=== PATIENT | female | born 1995 | race Caucasian/White ===

== ENCOUNTER → 2016-10-28 | Outpatient (CLI) | payer MEDICAID | LOC: RAD 13:49 | PROVIDERS: ATTEND Physician Assistant | DX: R10.30 Lower abdominal pain, unspecified (principal) | CPT/HCPCS: 76830 ==

== ENCOUNTER 2016-11-09 06:30 | Day surgery (SDC) | payer MEDICAID ==
[2016-11-09 06:49] LABS: HEMATOCRIT 40.2 % (36.0-47.0); HEMOGLOBIN 13.7 g/dL (12.0-15.5); HGB HCT DIFFERENCE 0.9; MEAN CORPUSCULAR HEMOGLOBIN 29.2 pg (27.0-33.4); MEAN CORPUSCULAR HGB CONC 34.1 g/dL (32.0-36.0); MEAN CORPUSCULAR VOLUME 86 fl (80-97); RED BLOOD COUNT 4.68 10^6/uL (3.72-5.28); RED CELL DISTRIBUTION WIDTH 12.5 % (11.5-14.0); WHITE BLOOD COUNT 6.2 10^3/uL (4.0-10.5)
[2016-11-09] MEDS ORDERED: NALOXONE HCL INJ/PF 0.4 MG/1 ML SDV ONE (07:29)
[2016-11-09] MEDS ORDERED: PROMETHAZINE HCL INJ 25 MG/1 ML VIAL ONE (07:30)
[2016-11-09] MEDS ORDERED: GLYCOPYRROLATE INJ 0.4 MG/2 ML VIAL ONE (07:30)
[2016-11-09] MEDS ORDERED: ONDANSETRON HCL INJ/PF 4 MG/2 ML SDV ONE (07:30)
[2016-11-09] MEDS ORDERED: GLUCAGON,HUMAN RECOMB 1 MG INJ ONE (07:31)
[2016-11-09] MEDS ORDERED: FLUMAZENIL INJ 0.5 MG/5 ML VIAL IV ONE (07:31)
[2016-11-09] MEDS ORDERED: EPINEPHRINE INJ 1 MG/10 ML DISP.SYRIN ONE (07:31)
[2016-11-09] MEDS: MIDAZOLAM 2 MG/2 ML INJ ONE ×3 (08:27→08:37)
[2016-11-09] MEDS: FENTANYL CITRATE INJ/PF 100 MCG/2 ML AMPUL ONE ×2 (08:29→08:35)
--- NOTE | 2016-11-09 09:23 | Operative Report ---
Operative Report DATE OF SURGERY: 11/09/16 PREOPERATIVE DIAGNOSIS: Blood per rectum POSTOPERATIVE DIAGNOSIS: Internal hemorrhoid OPERATION: Colonoscopy with colon biopsy. Anoscopy with hemorrhoidal banding 1 SURGEON: ANDREWS PIERRE ANESTHESIA: Moderate Sedation TISSUE REMOVED OR ALTERED: Right anterior internal hemorrhoidal complex banded. Prominent ileocecal valve biopsy. COMPLICATIONS: None ESTIMATED BLOOD LOSS: minimal INTRAOPERATIVE FINDINGS: Redundant colon. Prominent ileocecal valve. Moderate sized right anterior internal hemorrhoidal complex. PROCEDURE: Informed consent was obtained. Patient was brought to the endoscopy suite and placed on the endoscopy suite table with her left side down. IV sedation with Versed and fentanyl was administered. Digital rectal exam revealed no palpable perianal masses. Endoscope was passed via the patient's anus it was fed to the cecum the patient's colon was markedly redundant making the procedure difficult and the patient experienced some pain at the beginning of the procedure requiring additional sedation. But she was comfortable after the scope was passed to the cecum. The ileocecal valve appear very prominent and a biopsy was taken of this region to ensure that the it was not a large adenoma. Remainder of the cecum and right colon transverse colon descending colon sigmoid colon and rectum were all normal with no masses no diverticuli. Anoscopy was performed it demonstrated small internal hemorrhoids too small to be banded with the exception of the right anterior internal hemorrhoidal complex which was able to be banded above the level of the dentate line with minimal patient discomfort. Patient tolerated procedure well with no apparent complications. Patient with some likely prominent ileocecal valve however will await biopsy report to make sure that it was not a large adenoma in this region. Patient status post successful banding of her right anterior internal hemorrhoidal complex. Hopefully this provides relief of her symptoms. I will see the patient back for follow-up next week.
--- NOTE | 2016-11-09 09:27 | PDOC DISCHARGE SUMMARY ---
Discharge Summary (SDC) - Discharge Final Diagnosis: Internal hemorrhoids. Date of Surgery: 11/09/16 Discharge Date: 11/09/16 Condition: Good Treatment or Instructions: Underwent colonoscopy with biopsy of prominent ileocecal valve. Anoscopy with hemorrhoidal banding 1. February discharge the patient home when met discharge criteria. Follow-up with me next week. Prescriptions: Docusate Sodium [Colace 100 mg Capsule] 100 mg PO BID #60 capsule Oxycodone HCl/Acetaminophen [Percocet 5-325 mg Tablet] 1 tab PO ASDIR PRN #25 tablet PRN Reason: Discharge Diet: As Tolerated Discharge Activity: Activity As Tolerated Report the Following to Your Physician Immediately: Fever over 101 Degrees, Unusual Bleeding - Normal to experience small amounts of bleeding in the first few days., Drainage-Foul Smelling, Large Clots Other Items to Report to MD: inability to urinate. Severe perianal pain.
[2016-11-09 10:01] VITALS: BP 111/64
== END 2016-11-09 10:15 | disposition home or self-care (01) ==
LOC: END 06:30
PROVIDERS: ATTEND Surgery
PROC: 0DBC8ZX Excision of Ileocecal Valve, Via Natural or Artificial Opening Endoscopic, Diagnostic (ICD-10-PCS; principal; 2016-11-09 08:00)
PROC: 06LY0CC Occlusion of Hemorrhoidal Plexus with Extraluminal Device, Open Approach (ICD-10-PCS; 2016-11-09 08:00)
DX: K62.5 Hemorrhage of anus and rectum (principal); K64.8 Other hemorrhoids; K63.89 Other specified diseases of intestine; Z87.891 Personal history of nicotine dependence; Q43.8 Other specified congenital malformations of intestine
CPT/HCPCS: 45380; 46221; 36415; 85027; 81025; 88305 ×2; J2250; J3010; J0171; J1610; J2310; J2405; J2550; J3490

== ENCOUNTER 2016-12-16 18:13 | Emergency (ER) | payer MEDICAID ==
--- NOTE | 2016-12-16 18:39 | ER Document Report ---
ED Medical Screen (RME) - General Stated Complaint: PELVIC PAIN Notes: onset: tuesday night pelvic pain b/l worse on the right, nnasuea, dizzyness, headache. Denies vaginal discharge, pyuria admits to urgency and frequency LMP: 12/08/2016 Sexually active, with one partner, does not use protection Has a mirena I have greeted and performed a rapid initial assessment of this patient. A comprehensive ED assessment and evaluation of the patient, analysis of test results and completion of the medical decision making process will be conducted by additional ED providers. TRAVEL OUTSIDE OF THE [place] IN LAST 30 DAYS: No - Related Data Allergies/Adverse Reactions: No Known Drug Allergies Allergy (Verified 11/09/16 06:19) Past Medical History - Past Medical History Cardiac Medical History: Denies: Hx Coronary Artery Disease, Hx Heart Attack, Hx Hypertension Pulmonary Medical History: Denies: Hx Asthma, Hx Bronchitis, Hx COPD, Hx Pneumonia Neurological Medical History: Reports: Hx Migraine. Denies: Hx Cerebrovascular Accident, Hx Seizures Renal/ Medical History: Reports: Hx Ovarian Cysts - 1 year ago but not sure if it is still there Musculoskeltal Medical History: Denies Hx Arthritis Past Surgical History: Reports: Hx Section - x2. Denies: Hx Hysterectomy - Immunizations Immunizations up to date: Yes Hx Diphtheria, Pertussis, Tetanus Vaccination: Yes Physical Exam - Vital signs Vitals: Temp Pulse Resp BP Pulse Ox 98.1 F 94 20 111/68 98 12/16/16 18:32 12/16/16 18:32 12/16/16 18:32 12/16/16 18:32 12/16/16 18:32 Course - Vital Signs Vital signs: Temp Pulse Resp BP Pulse Ox 98.1 F 94 20 111/68 98 12/16/16 18:32 12/16/16 18:32 12/16/16 18:32 12/16/16 18:32 12/16/16 18:32
[2016-12-16 19:07] LABS: APPEARANCE,URINE SLIGHTLY-CLOUDY; BILIRUBIN,URINE NEGATIVE (NEGATIVE); GLUCOSE, URINE NEGATIVE (NEGATIVE); KETONES,URINE NEGATIVE (NEGATIVE); LEUKOCYTE ESTERASE,URINE TRACE (NEGATIVE); NITRITE,URINE NEGATIVE (NEGATIVE); PROTEIN,URINE NEGATIVE (NEGATIVE); URINE SPECIFIC GRAVITY 1.031; UROBILINOGEN,URINE NEGATIVE mg/dL (<2.0)
[2016-12-16] MEDS ORDERED: ONDANSETRON 4 MG TAB.RAPDIS PO ONE (20:48)
--- NOTE | 2016-12-16 20:49 | ER Document Report ---
ED GI/ - General Chief Complaint: Pelvic Pain Stated Complaint: PELVIC PAIN Notes: Patient is a 21-year-old female that comes emergency department for chief complaint of worsening pain on both sides of her lower abdomen/pelvic area, unsure of discharge, denies bleeding, reports some painful urination. She denies flank pain, fever. She states she feels nauseated but denies vomiting. Patient is sexually active, denies using protection, has a Mirena IUD. TRAVEL OUTSIDE OF THE [place] IN LAST 30 DAYS: No - Related Data Allergies/Adverse Reactions: No Known Drug Allergies Allergy (Verified 12/16/16 18:40) Past Medical History - General Information source: Patient - Social History Smoking Status: Never Smoker Chew tobacco use (# tins/day): No Frequency of alcohol use: None Drug Abuse: None Lives with: Family Family History: Reviewed & Not Pertinent Patient has suicidal ideation: No Patient has homicidal ideation: No - Past Medical History Cardiac Medical History: Denies: Hx Coronary Artery Disease, Hx Heart Attack, Hx Hypertension Pulmonary Medical History: Denies: Hx Asthma, Hx Bronchitis, Hx COPD, Hx Pneumonia Neurological Medical History: Reports: Hx Migraine. Denies: Hx Cerebrovascular Accident, Hx Seizures Renal/ Medical History: Reports: Hx Ovarian Cysts - 1 year ago but not sure if it is still there. Denies: Hx Peritoneal Dialysis Musculoskeltal Medical History: Denies Hx Arthritis Past Surgical History: Reports: Hx Section - x2. Denies: Hx Hysterectomy - Immunizations Immunizations up to date: Yes Hx Diphtheria, Pertussis, Tetanus Vaccination: Yes Review of Systems - Review of Systems Constitutional: No symptoms reported EENT: No symptoms reported Cardiovascular: No symptoms reported Respiratory: No symptoms reported Gastrointestinal: See HPI Genitourinary: See HPI Female Genitourinary: See HPI Musculoskeletal: No symptoms reported Skin: No symptoms reported Hematologic/Lymphatic: No symptoms reported Neurological/Psychological: No symptoms reported Physical Exam - Vital signs Vitals: Temp Pulse Resp BP Pulse Ox 98.1 F 94 20 111/68 98 12/16/16 18:32 12/16/16 18:32 12/16/16 18:32 12/16/16 18:32 12/16/16 18:32 Interpretation: Normal - General General appearance: Appears well, Alert In distress: None - HEENT Head: Normocephalic, Atraumatic Eyes: Normal Extraocular movements intact: Yes Eyelashes: Normal Pupils: PERRL Mouth/Lips: Normal Mucous membranes: Normal Pharynx: Normal Neck: Normal - Respiratory Respiratory status: No respiratory distress Chest status: Nontender Breath sounds: Normal. No: Decreased air movement, Productive cough, Wheezing Chest palpation: Normal - Cardiovascular Rhythm: Regular. No: Tachycardia Heart sounds: Normal auscultation, S1 appreciated, S2 appreciated Murmur: No - Abdominal Inspection: Normal Distension: No distension Bowel sounds: Normal Tenderness: Tender - Very mild suprapubic tenderness Organomegaly: No organomegaly - Back Back: Normal, Nontender - Extremities General upper extremity: Normal inspection, Nontender, Normal color, Normal ROM , Normal temperature General lower extremity: Normal inspection, Nontender, Normal color, Normal ROM , Normal temperature, Normal weight bearing. No: Zainab's sign - Neurological Neuro grossly intact: Yes Cognition: Normal Orientation: AAOx4 Thomas Coma Scale Eye Opening: Spontaneous [place] Coma Scale Verbal: Oriented [place] Coma Scale Motor: Obeys Commands Thomas Coma Scale Total: 15 Speech: Normal Motor strength normal: LUE, RUE, LLE, RLE Sensory: Normal - Psychological Associated symptoms: Normal affect, Normal mood - Skin Skin Temperature: Warm Skin Moisture: Dry Skin Color: Normal Course - Re-evaluation Re-evalutation: Abdominal exam is unremarkable with mild suprapubic tenderness, no guarding of the abdomen. Vital signs unremarkable. CBC, chemistry, pelvic workup unremarkable. Urinalysis shows trace leukocyte esterase, patient is complaining of painful urination. After discussion with patient, based on her workup, patient will be placed on Keflex antibiotics, discussed primary care follow-up and return precautions, patient states understanding and agreement. - Vital Signs Vital signs: Temp Pulse Resp BP Pulse Ox 98.4 F 100 14 107/72 96 12/16/16 22:31 12/16/16 22:31 12/16/16 22:31 12/16/16 22:31 12/16/16 22:31 - Laboratory Result Diagrams: 12/16/16 21:15 12/16/16 21:15 Laboratory results interpreted by me: 12/16/16 18:47 Ur Leukocyte Esterase TRACE H Discharge - Discharge Clinical Impression: Lower abdominal pain, Dysuria Condition: Stable Disposition: HOME, SELF-CARE Additional Instructions: Take Keflex as directed for urinary tract infection. Workup otherwise shows no abnormalities. Return to emergency department for any concerning or worsening symptoms including fever, severe pain, abdominal distention, vomiting, etc. Prescriptions: Cephalexin Monohydrate [Keflex 500 mg Capsule] 500 mg PO BID #6 capsule Referrals: ALO SARABIA MD [Primary Care Provider] - Follow up as needed
[2016-12-16 21:26] LABS: ABSOLUTE BASOPHILS # (AUTO) 0.1 10^3/uL (0.0-0.2); ABSOLUTE EOSINOPHILS # (AUTO) 0.1 10^3/uL (0.0-0.6); ABSOLUTE LYMPHOCYTES (AUTO) 2.8 10^3/uL (0.5-4.7); ABSOLUTE MONOCYTES (AUTO) 0.9 10^3/uL (0.1-1.4); ABSOLUTE NEUT (AUTO) 5.8 10^3/uL (1.7-8.2); BASOPHILS % (AUTO) 0.6 % (0-2); EOSINOPHILS % (AUTO) 0.8 % (0-6); HEMATOCRIT 38.8 % (36.0-47.0); HEMOGLOBIN 13.6 g/dL (12.0-15.5); LYMPHOCYTES % (AUTO) 28.8 % (13-45); MEAN CORPUSCULAR HEMOGLOBIN 29.5 pg (27.0-33.4); MEAN CORPUSCULAR HGB CONC 35.1 g/dL (32.0-36.0); MEAN CORPUSCULAR VOLUME 84 fl (80-97); MONOCYTES % (AUTO) 9.6 % (3-13); RED BLOOD COUNT 4.61 10^6/uL (3.72-5.28); RED CELL DISTRIBUTION WIDTH 12.5 % (11.5-14.0); SEGMENTED NEUTROPHILS % (AUTO) 60.2 % (42-78); WHITE BLOOD COUNT 9.6 10^3/uL (4.0-10.5)
[2016-12-16 22:05] LABS: ALANINE AMINOTRANSFERASE 26 U/L (9-52); ALBUMIN 4.4 g/dL (3.5-5.0); ALKALINE PHOSPHATASE 80 U/L (38-126); ANION GAP 13 (5-19); ASPARTATE AMINO TRANSFERASE 17 U/L (14-36); BILIRUBIN,TOTAL 0.5 mg/dL (0.2-1.3); BLOOD UREA NITROGEN 11 mg/dL (7-20); CALCIUM 9.7 mg/dL (8.4-10.2); CARBON DIOXIDE 27 mmol/L (22-30); CHLORIDE 104 mmol/L (98-107); GLUCOSE 96 mg/dL (75-110); POTASSIUM 3.8 mmol/L (3.6-5.0); SODIUM 143.7 mmol/L (137-145); TOTAL PROTEIN 7.2 g/dL (6.3-8.2)
[2016-12-16] MEDS ORDERED: CEPHALEXIN 500 MG CAPSULE PO ONE (22:13)
[2016-12-16 22:34] VITALS: BP 107/72
[2016-12-16 22:43] LABS: CHLAM PCR NOT DETECTED (NOT DETECT)
== END 2016-12-16 22:34 | disposition home or self-care (01) ==
LOC: ER 18:13
DX: R10.30 Lower abdominal pain, unspecified (principal); R30.0 Dysuria; R10.2 Pelvic and perineal pain
CPT/HCPCS: 99284; 36415; 87210; 85025; 81025; 80053; 81001; 87491; 87591; S0119

== ENCOUNTER 2017-03-07 23:27 | Emergency (ER) | payer MEDICAID ==
--- NOTE | 2017-03-08 00:57 | ER Document Report ---
ED Headache - General Mode of Arrival: Ambulatory Information source: Patient TRAVEL OUTSIDE OF THE [place] IN LAST 30 DAYS: No - HPI Patient complains to provider of: Headache Patient reports: Occasional migraines Onset: This morning Onset was: Gradual Timing: Worse Associated symptoms: Double/blurred vision, Photophobia - General Chief Complaint: Headache Stated Complaint: HEADACHE Time Seen by Provider: 03/08/17 00:56 Notes: Patient is a 21-year-old female presenting to the emergency department with concerns of headache onset this morning, progressively worsening. Patient admits to blurred vision and photophobia. Patient states she has a history of migraines, but not as many recently. Patient states she normally takes over-the -counter medications or her mom's Fioricet, which she tried today without relief. Patient reports the pain being behind her eyes, forehead, and back of head. She also reports being scheduled for an eye exam to check for possible tumor behind her eyes, but had to reschedule due to work. States she has been experiencing pain behind her eyes for approximately 3-4 weeks. (FELIBERTO LAUREN) - Related Data Allergies/Adverse Reactions: No Known Drug Allergies Allergy (Verified 12/16/16 18:40) Past Medical History - General Information source: Patient - Social History Smoking Status: Unknown if Ever Smoked Family History: Reviewed & Not Pertinent Patient has suicidal ideation: No Patient has homicidal ideation: No Neurological Medical History: Reports: Hx Migraine Renal/ Medical History: Reports: Hx Ovarian Cysts Past Surgical History: Reports: Hx Section - x2 - Immunizations Immunizations up to date: Yes Hx Diphtheria, Pertussis, Tetanus Vaccination: Yes Review of Systems - Review of Systems Constitutional: No symptoms reported EENT: See HPI, Eye pain - behind eyes, Blurred vision Cardiovascular: No symptoms reported Respiratory: No symptoms reported Gastrointestinal: No symptoms reported Genitourinary: No symptoms reported Female Genitourinary: No symptoms reported Musculoskeletal: No symptoms reported Skin: No symptoms reported Hematologic/Lymphatic: No symptoms reported Neurological/Psychological: See HPI, Headaches -: Yes All other systems reviewed and negative Physical Exam - General General appearance: Appears well, Alert In distress: None - HEENT Head: Normocephalic, Atraumatic. No: Tenderness - No tenderness to posterior cervical muscles, frontal, or temporal areas. Eyes: Other - Bilateral tenderness to palpation behind eyes - Respiratory Respiratory status: No respiratory distress Chest status: Nontender Breath sounds: Normal Chest palpation: Normal - Cardiovascular Rhythm: Regular - Abdominal Inspection: Normal Tenderness: Nontender - Back Back: Normal, Nontender - Extremities General upper extremity: Normal inspection, Nontender General lower extremity: Normal inspection, Nontender - Neurological Neuro grossly intact: Yes Cognition: Normal Orientation: AAOx4 [place] Coma Scale Eye Opening: Spontaneous Thomas Coma Scale Verbal: Oriented Thomas Coma Scale Motor: Obeys Commands [place] Coma Scale Total: 15 Speech: Normal - Psychological Associated symptoms: Normal affect, Normal mood - Skin Skin Temperature: Warm Skin Moisture: Dry Skin Color: Normal Course - Re-evaluation Re-evalutation: 03/08/17 03:06 Patient states her headache is gone and she feels much better and is ready to go home. (JAMARI LUNA) - Vital Signs Vital signs: Temp Pulse Resp BP Pulse Ox 98.1 F 95 16 125/77 100 03/07/17 23:34 03/07/17 23:34 03/07/17 23:34 03/07/17 23:34 03/07/17 23:34 Discharge - Discharge Clinical Impression: Migraine headache Qualifiers: Migraine type: unspecified Status migrainosus presence: without status migrainosus Intractability: not intractable Qualified Code(s): G43.909 - Migraine, unspecified, not intractable, without status migrainosus Condition: Stable Disposition: HOME, SELF-CARE Additional Instructions: Migraine Headache: The physician feels that your symptoms are due to a migraine attack. Migraines are caused by changes in the blood vessels of the head. Arteries go into spasm, often causing warning symptoms that a headache may begin soon. As the spasm goes away, the vessels dilate and throb, causing the pounding pain of a migraine headache. Migraines often cause nausea and vomiting. The treatment of headaches varies with severity and cause of pain. Not all headaches need pain shots -- in fact, there is evidence that using narcotics for headaches may make them worse in the long run. The physician will determine the therapy that's in your best interest for this particular headache. Medications are available that may prevent migraines, or stop them as they first occur. If one medication is not helpful, try another. If migraines are frequent, be patient -- follow the doctor's recommendations. Call the physician if you are worsening, or if new symptoms arise. Referrals: ALO SARABIA MD [Primary Care Provider] - Follow up as needed Scribe Attestation: 03/08/17 03:07 I personally performed the services described in the documentation, reviewed and edited the documentation which was dictated to the scribe in my presence, and it accurately records my words and actions. (JAMARI LUNA) Scribe Documentation - Scribe Written by Jakub:: Jakub Hurtado, 03/08/2017 [id number] acting as scribe for :: Cricket
[2017-03-08] MEDS ORDERED: NORMAL SALINE 1000 ML 1,000 ML IV ONE (01:04)
[2017-03-08] MEDS ORDERED: PROCHLORPERAZINE EDISYLATE INJ 10 MG/2 ML VIAL IV ONE (01:06)
[2017-03-08] MEDS ORDERED: DIPHENHYDRAMINE HCL 50 MG/ML VIAL IV ONE (01:06)
[2017-03-08] MEDS ORDERED: KETOROLAC TROMETHAMINE INJ/PF 30 MG/1 ML SDV IV ONE (01:06)
[2017-03-08 03:11] VITALS: BP 114/59
== END 2017-03-08 03:14 | disposition home or self-care (01) ==
LOC: ER 23:27
DX: G43.909 Migraine, unspecified, not intractable, without status migrainosus (principal); H53.8 Other visual disturbances
CPT/HCPCS: 99283; 96374; 96375; J1200; J1885; J0780; J7030

== ENCOUNTER → 2017-04-22 | Outpatient (CLI) | payer MEDICAID ==
--- NOTE | 2017-04-24 12:48 | XCELERA REPORT ---
[address] [address] Upper Extremity Venous Evaluation Name: ACE LOWRY Age: 21 yrs Gender: Female : 1995 Patient Status: Outpatient Patient Location: Study Date: 04/22/2017 01:07 PM Procedure: Unilateral duplex scan of the right upper extremity veins was performed, including responses to compression and other maneuvers. Reason For Study: RUE PAIN Ordering Physician: ALO SARABIA Performed By: Samira Lion Right Side Venous Evaluation Normal vessel filling wall to wall, compression and augmentation as well as Colour flow down to the forearm veins. Interpretation Summary Normal compression, patency, spontaneous and phasic flow of the right upper extremity veins. : ALO SARABIA > Harsha Garrett
== END ==
LOC: SP 12:32
PROVIDERS: ATTEND Family Medicine
DX: M79.621 Pain in right upper arm (principal); H92.03 Otalgia, bilateral
CPT/HCPCS: 93971

== ENCOUNTER → 2017-07-26 | Outpatient (CLI) | payer MEDICAID ==
--- NOTE | 2017-07-26 15:32 | RADIOLOGY REPORT (SQ) ---
EXAM DESCRIPTION: U/S [id number] TRNABD 1GES W/ODOP COMPLETED DATE/TIME: 07/26/2017 2:33 pm REASON FOR STUDY: ENCNTR FOR SUPERVISION OF OTHER NORMAL , FIRST TRIMESTER (Z34.81) Z34.81 ENCOUNTER FOR SUPRVSN OF NORMAL , FIRST TRIM COMPARISON: None. TECHNIQUE: Transabdominal static and realtime grayscale images acquired of the pelvis. Additional se lected spectral and color Doppler images recorded. All images stored on PACs. [facility]. LIMITATIONS: None. FINDINGS: FETUS: Living intrauterine . EGA: 6 weeks 5 days JEAN PAUL: 03/16/2018 FHR: 145 beats per minute. SUBCHORIONIC BLEED: No SIZE OF BLEED: Not applicable. UTERUS: 8.7 x 8.1 x 6.5 cm. No masses. CERVICAL LENGTH: Not measured. Closed. RIGHT ADNEXA: Normal ovary. 3.7 x 2.2 x 3.9 cm. No adnexal free fluid. No adnexal masses. LEFT ADNEXA: Normal ovary, 3.5 x 1.9 x 2.7 cm. No adnexal free fluid. No adnexal masses. FREE FLUID: None. OTHER: No other significant finding. IMPRESSION: LIVING INTRAUTERINE . EGA 6 weeks 5 days. Trimester of : First - 0 to 13 weeks. TECHNICAL DOCUMENTATION: JOB ID: [id number] [employer]- All Rights Reserved
== END ==
LOC: RAD 12:45
PROVIDERS: ATTEND Nurse Practitioner Women's Health
DX: Z34.81 Encounter for supervision of other normal pregnancy, first trimester (principal)
CPT/HCPCS: 76801

== ENCOUNTER → 2017-10-25 | Outpatient (CLI) | payer MEDICAID ==
--- NOTE | 2017-10-25 16:24 | RADIOLOGY REPORT (SQ) ---
EXAM DESCRIPTION: U/S OB 14+ TRNABD 1GES W/O DOP COMPLETED DATE/TIME: 10/25/2017 2:21 pm REASON FOR STUDY: ENCTR FOR SUPERVISION OF OTHER NORMAL 2ND TRIMESTER (Z34.82) Z34.82 ENC OUNTER FOR SUPRVSN OF NORMAL , SECOND TRI COMPARISON: 07/26/2017 TECHNIQUE: Static and Dynamic grayscale imaging performed of gravid uterus using transabdominal appr oach. Additional selected color Doppler and spectral images recorded. All stored on PACS. LIMITATIONS: None. FINDINGS: EGA: 20 weeks 1 day JEAN PAUL: 03/13/2018 EFW: 384 grams PERCENTILE: Not calculated COLLEEN: Largest pocket 3.4 cm PLACENTA: Anterior GRADE: I PRESENTATION: Breech ANATOMY: HEART RATE: 145 beats per minute. FOUR CHAMBER HEART: Visualized. THREE VESSEL CORD: No, a 2 vessel cord is identified CORD INSERTION: Visualized. KIDNEYS AND BLADDER: Visualized. Appear normal. STOMACH: Visualized. Appears normal. SPINE: Normal as visualized. BRAIN AND LATERAL VENTRICLES: Visualized. Appear normal. OTHER: No other significant finding. MATERNAL ADNEXA: Maternal ovaries not visualized. CERVICAL LENGTH: 3.4 cm Closed. OTHER: No other significant finding. IMPRESSION: LIVING INTRAUTERINE . ESTIMATED GESTATIONAL AGE 20 weeks 1 day 2 vessel umbilical cord Trimester of : Second trimester - 13 weeks 1 day to 27 weeks 6 days. TECHNICAL DOCUMENTATION: JOB ID: [id number] [employer]- All Rights Reserved
== END ==
LOC: RAD 12:52
PROVIDERS: ATTEND Nurse Practitioner Women's Health
DX: Z34.82 Encounter for supervision of other normal pregnancy, second trimester (principal)
CPT/HCPCS: 76805

== ENCOUNTER 2017-11-01 09:46 | Outpatient (CLI) | payer MEDICAID ==
[2017-11-01 11:02] LABS: APPEARANCE,URINE CLOUDY; BILIRUBIN,URINE NEGATIVE (NEGATIVE); COLOR,URINE AMBER; GLUCOSE, URINE NEGATIVE (NEGATIVE); KETONES,URINE NEGATIVE (NEGATIVE); LEUKOCYTE ESTERASE,URINE SMALL (NEGATIVE); NITRITE,URINE NEGATIVE (NEGATIVE); PROTEIN,URINE 100 mg/dL (NEGATIVE); URINE SPECIFIC GRAVITY 1.032
[2017-11-01] MEDS ORDERED: PROMETHAZINE HCL INJ 25 MG/1 ML VIAL ONE (11:11)
[2017-11-01] MEDS ORDERED: RINGERS SOLUTION,LACTATED 1,000 ML IV ONE ×2 (11:14→13:15)
[2017-11-01] MEDS ORDERED: RINGERS SOLUTION,LACTATED 1,000 ML IV PRN (11:14)
[2017-11-01 11:17] LABS: URINE AMPHETAMINES SCREEN NEGATIVE; URINE BARBITURATES SCREEN NEGATIVE; URINE BENZODIAZEPINES SCREEN NEGATIVE; URINE COCAINE SCREEN NEGATIVE; URINE MARIJUANA (THC) SCREEN NEGATIVE; URINE METHADONE SCREEN NEGATIVE; URINE PHENCYCLIDINE SCREEN NEGATIVE
[2017-11-01] MEDS ORDERED: PROMETHAZINE HCL INJ 25 MG/1 ML VIAL IV ONE (14:00)
== END 2017-11-01 13:05 | disposition home or self-care (01) ==
LOC: EDSTATUS 10:01 → LC 10:03
PROVIDERS: ATTEND Obstetrics & Gynecology Gynecology
PROC: 4A1HXCZ Monitoring of Products of Conception, Cardiac Rate, External Approach (ICD-10-PCS; principal; 2017-11-01)
DX: O21.2 Late vomiting of pregnancy (principal); Z3A.21 21 weeks gestation of pregnancy
CPT/HCPCS: 81001; 80307; 59899; J2550

== ENCOUNTER 2018-01-31 16:12 | Emergency (ER) | payer MEDICAID ==
--- NOTE | 2018-01-31 16:44 | ER Document Report ---
ED General - General Chief Complaint: Chest Pain Stated Complaint: COUGH, RAPID PULSE Time Seen by Provider: 01/31/18 16:34 Notes: Patient was referred here to be evaluated for a possible blood clot in her lungs. She has been feeling sick since yesterday with a sore throat and congestion and a dry cough and some pain into her right shoulder. She went to her primary care doctor's office today and her heart rates were noticed to be increased and they sent her here for further evaluation. Patient says that she recalls her heart rate being 126 to 130 in the doctor's office. She has never had blood clots before. She is 34 weeks . Has not had any vomiting or diarrhea or fevers. TRAVEL OUTSIDE OF THE [place] IN LAST 30 DAYS: No - Related Data Allergies/Adverse Reactions: No Known Drug Allergies Allergy (Verified 11/01/17 10:37) Past Medical History - Social History Smoking Status: Unknown if Ever Smoked Cigarette use (# per day): No Family History: Reviewed & Not Pertinent - Past Medical History Cardiac Medical History: Reports: Other - No history of blood clots. Neurological Medical History: Reports: Hx Migraine Renal/ Medical History: Reports: Hx Ovarian Cysts Musculoskeltal Medical History: Denies Hx Arthritis Past Surgical History: Reports: Hx Section - x2 - Immunizations Immunizations up to date: Yes Hx Diphtheria, Pertussis, Tetanus Vaccination: Yes Review of Systems - Review of Systems Notes: REVIEW OF SYSTEMS: CONSTITUTIONAL : Denies fever. EENT: See HPI. Denies eye, ear pain or other symptoms. CARDIOVASCULAR: Denies chest pain. RESPIRATORY: See HPI. GASTROINTESTINAL: Denies abdominal pain or nausea, vomiting, or diarrhea. GENITOURINARY: Denies difficulty or painful urinating, urinary frequency, blood in urine. MUSCULOSKELETAL: Denies back or neck pain. Denies joint pain or swelling. Pain in the right shoulder. SKIN: Denies rash or skin lesions. NEUROLOGICAL: Denies LOC or altered mental status. Denies headache. Denies sensory loss or motor deficits. ALL OTHER SYSTEMS REVIEWED AND NEGATIVE. Physical Exam - Vital signs Vitals: Temp Pulse Resp BP Pulse Ox 97.7 F 107 H 18 109/74 99 01/31/18 16:20 01/31/18 16:20 01/31/18 16:20 01/31/18 16:20 01/31/18 16:20 Interpretation: Tachycardic - Mild at 107 in triage. - Notes Notes: PHYSICAL EXAMINATION: GENERAL: Well-appearing, in no acute distress. HEAD: Atraumatic, normocephalic. EYES: Pupils equal round and reactive to light, extraocular movements intact. ENT: oropharynx clear, with only some erythema, but without exudates. Moist mucous membranes. NECK: Normal range of motion, supple. LUNGS: Breath sounds clear and equal bilaterally. HEART: Regular rate and rhythm without murmurs. ABDOMEN: Soft, nontender. No guarding or rebound. No masses. BACK: No tenderness throughout entire back. Shoulder with full range of motion without pain. EXTREMITIES: Normal range of motion without pain. NEUROLOGICAL: Normal speech, normal gait. Normal sensory, motor, and reflex exams. Awake, alert, and oriented x3. Cranial nerves normal. PSYCH: Normal mood, normal affect. SKIN: Warm, dry, no rashes. Course - Vital Signs Vital signs: Temp Pulse Resp BP Pulse Ox 97.7 F 107 H 18 109/74 97 01/31/18 16:20 01/31/18 16:20 01/31/18 16:34 01/31/18 16:20 01/31/18 16:55 - Laboratory Result Diagrams: 01/31/18 16:30 01/31/18 16:30 Laboratory results interpreted by oh: 01/31/18 01/31/18 01/31/18 16:30 16:30 17:28 Hct 33.7 L BUN 4 L Creatinine 0.42 L TSH 0.28 L - Diagnostic Test Radiology reviewed: Image reviewed, Reports reviewed - CTA of the chest is negative for pulmonary emboli. - EKG Interpretation by Ut EKG shows normal: Sinus rhythm Rate: Tachycardia - At 107 Rhythm: NSR Additional EKG results interpreted by oh: 01/31/18 18:20 EKG is otherwise normal. Discharge - Discharge Clinical Impression: URI (upper respiratory infection), Sore throat, , Viral illness Condition: Stable Disposition: HOME, SELF-CARE Additional Instructions: Sinus Tachycardia The palpitations (racing heart) you have felt are due to "sinus tachycardia." This is a rapid (but NORMAL) rhythm which can be due to fever, pain, anxiety, lack of sleep, over-exertion, or drugs. Cold medications, caffeine, and diet pills are particularly likely to cause tachycardia. The doctor has found no evidence of heart disease. Occasionally, medication is required for uncomfortable palpitations. Usually, however, all that is required is rest, reassurance, and avoiding caffeine, alcohol, nicotine , and unnecessary medicines. Call the doctor if you develop any new or unusual symptoms, or if the rapid heartbeat does not resolve. CHEST PAIN OF UNCLEAR CAUSE: The exact cause of your chest pain isn't clear. Fortunately, there is no evidence of a dangerous medical condition. Further testing may be required to find the source of the pain. Most often, we find that this pain is coming from the chest wall -- the muscles or rib joints in the chest. But chest pain can come from the lung and lung lining, the esophagus, the heart valves or heart lining, and even the stomach or gallbladder. Rest. Eat lightly until the pain is gone. We may prescribe medicine for pain and inflammation. You should call the physician immediately if the pain radiates to the shoulder, jaw or arms; if you start to run a fever or develop a cough; or if you develop shortness of breath, or other new or alarming symptoms. NORMAL EXAM AND WORKUP: At this time, your examination and workup show no significant abnormality. No significant abnormal physical findings were noted. All laboratory, EKG, and imaging (x-ray, CT scans, ultrasound) studies that were ordered show no significant abnormality. Although your examination and all studies that were ordered showed no significant abnormal finding, there are no examinations and no studies that are 100% accurate. There is always the possibility that some abnormality could exist and not be detected with physical examination or within the limits and capabilities of laboratory and other studies. You should return or follow up as you were instructed on your visit today for further evaluation if your symptoms do not resolve. CHEST WALL PAIN: Your chest pain may be coming from the chest wall. This is often caused by straining the muscles or joints in the chest during physical activity, direct trauma, coughing, or vigorous vomiting. Persons with arthritis are especially prone to this type of pain, due to inflammation of the cartilage joints near the breast bone. Occasionally, no cause can be found. Rest from strenuous physical activity. This kind of chest pain is usually made worse by movement of the chest. Depending on the symptoms, we may prescribe medicine for pain, muscle relaxation, and antiinflammatory effects. If the pain is new, and seems to be due to muscle strain, cold packs can help. Otherwise, apply gentle warmth to the painful area for 15 minutes every hour or two. You should call contact the doctor immediately if things change. Further evaluation is needed if you develop a fever or cough, if the nature of the pain changes, or if you become short of breath. SORE THROAT: Sore throats may be caused by viruses, bacteria, or fungi. Most are due to a virus, and must get better on their own. Bacterial sore throats, particularly those due to "strep," need treatment with antibiotics. If an antibiotic is prescribed, be sure to take the medication for a full 10 days. Failure to take the antibiotic can result in complications such as rheumatic fever. Sometimes, an injection of antibiotics is given instead of pills or liquid. This single "shot" is equal in effectiveness to the oral medication. To relieve symptoms, take acetaminophen for pain. Sip clear liquids frequently, or eat popsicles or ice chips. Anesthetic sprays or lozenges may help. Make sure the air in the room is not too dry. Avoid using decongestants or antihistamines. Call the doctor if there is no improvement in two days, or if you have difficulty breathing, increasing throat pain, high fever, rash, or frequent vomiting. UPPER RESPIRATORY ILLNESS: You have a viral infection of the respiratory passages -- a "cold." This common infection causes nasal congestion, drainage, and often sore throat and cough. It is highly contagious. The disease usually lasts about 10 to 14 days. There is no "cure" for the viral infection -- it must run its course. If there is a complication, such as bacterial infection in the nose, sinuses, middle ear, or bronchial tubes, antibiotics may be required. The antibiotics won't affect the virus. Drink plenty of fluids. A humidifier may help. An expectorant medication or decongestant may make you more comfortable. Use acetaminophen or ibuprofen for fever or aches. See the doctor if fever persists over two days, if there is any significant worsening of your symptoms, or if you simply fail to improve as expected. Viral Syndrome The physician has diagnosed a viral infection. Viruses not only cause "colds," but can cause many different symptoms including generalized aching, fever, headache, cough, diarrhea, nausea, vomiting, and fatigue. The treatment, for the most part, is simply relief of symptoms. This means that antibiotics are usually not given. Rest, fluids, pain medications and, occasionally, medication for the specific symptoms that are most bothersome will be prescribed. Use good handwashing to avoid passing the virus to others. Shared toys should be cleaned with disinfectant. Clean the toilets, sinks, and counter surfaces in bathrooms. Launder clothing in hot water. Contact the physician if you develop any new or unusual symptoms such as severe headache, stiff neck, high fever, chest pain, productive cough, or shortness of breath. You should be rechecked if you don't see marked improvement within seven to 10 days. USE OF ACETAMINOPHEN (Tylenol): Acetaminophen may be taken for pain relief or fever control. It's much safer than aspirin, offering a wider range of "safe" dosages. It is safe during . Some brand names are Tylenol, Panadol, Datril, Anacin 3, Tempra, and Liquiprin. Acetaminophen can be repeated every four hours. The following are maximum recommended dosages: >89 pounds or adults 650 mg to 900 mg Acetaminophen can be repeated every four hours. Maximum dose not to exceed 4000 mg a day. FOLLOW-UP CARE: If you have been referred to a physician for follow-up care, call the physician s office for an appointment as you were instructed or within the next two days. If you experience worsening or a significant change in your symptoms, notify the physician immediately or return to the Emergency Department at any time for re-evaluation. Referrals: ALO SARABIA MD [Primary Care Provider] - Follow up as needed
[2018-01-31 16:49] LABS: ABSOLUTE BASOPHILS # (AUTO) 0.1 10^3/uL (0.0-0.2); ABSOLUTE EOSINOPHILS # (AUTO) 0.2 10^3/uL (0.0-0.6); ABSOLUTE LYMPHOCYTES (AUTO) 1.5 10^3/uL (0.5-4.7); ABSOLUTE MONOCYTES (AUTO) 0.8 10^3/uL (0.1-1.4); ABSOLUTE NEUT (AUTO) 5.8 10^3/uL (1.7-8.2); BASOPHILS % (AUTO) 0.7 % (0-2); EOSINOPHILS % (AUTO) 2.8 % (0-6); HEMATOCRIT 33.7 % (36.0-47.0); LYMPHOCYTES % (AUTO) 17.8 % (13-45); MEAN CORPUSCULAR HEMOGLOBIN 31.4 pg (27.0-33.4); MEAN CORPUSCULAR HGB CONC 35.5 g/dL (32.0-36.0); MEAN CORPUSCULAR VOLUME 89 fl (80-97); PLATELET COUNT 196 10^3/uL (150-450); RED BLOOD COUNT 3.81 10^6/uL (3.72-5.28); RED CELL DISTRIBUTION WIDTH 12.9 % (11.5-14.0); SEGMENTED NEUTROPHILS % (AUTO) 68.7 % (42-78); TOTAL CELLS COUNTED % (AUTO) 100 %; WHITE BLOOD COUNT 8.4 10^3/uL (4.0-10.5)
--- NOTE | 2018-01-31 17:09 | RADIOLOGY REPORT (SQ) ---
EXAM DESCRIPTION: CHEST SINGLE VIEW COMPLETED DATE/TIME: 01/31/2018 4:51 pm REASON FOR STUDY: Cough and congestion and tachycardia, COMPARISON: 03/24/2016. EXAM PARAMETERS: NUMBER OF VIEWS: One view. TECHNIQUE: Single frontal radiographic view of the chest acquired. RADIATION DOSE: NA LIMITATIONS: None. FINDINGS: LUNGS AND PLEURA: No opacities, masses or pneumothorax. No pleural effusion. MEDIASTINUM AND HILAR STRUCTURES: No masses. Contour normal. HEART AND VASCULAR STRUCTURES: Heart normal in size. Normal vasculature. BONES: No acute findings. HARDWARE: None in the chest. OTHER: No other significant finding. IMPRESSION: NO ACUTE RADIOGRAPHIC FINDING IN THE CHEST. TECHNICAL DOCUMENTATION: JOB ID: [id number] [employer]- All Rights Reserved Reading location - IP/workstation name: [email or web address]
[2018-01-31 17:14] LABS: ALANINE AMINOTRANSFERASE 15 U/L (9-52); ALBUMIN 3.8 g/dL (3.5-5.0); ALKALINE PHOSPHATASE 122 U/L (38-126); ANION GAP 11 (5-19); ASPARTATE AMINO TRANSFERASE 18 U/L (14-36); BILIRUBIN,DIRECT 0.3 mg/dL (0.0-0.4); BILIRUBIN,TOTAL 0.4 mg/dL (0.2-1.3); BLOOD UREA NITROGEN 4 mg/dL (7-20); CALCIUM 9.2 mg/dL (8.4-10.2); CARBON DIOXIDE 23 mmol/L (22-30); CHLORIDE 107 mmol/L (98-107); GLUCOSE 81 mg/dL (75-110); POTASSIUM 3.6 mmol/L (3.6-5.0); SODIUM 140.9 mmol/L (137-145)
[2018-01-31 18:19] LABS: FREE T4 (FREE THYROXINE) 1.27 ng/dL (0.78-2.19)
[2018-01-31 18:33] LABS: THYROID STIMULATING HORMONE 0.28 uIU/mL (0.47-4.68)
--- NOTE | 2018-01-31 18:40 | RADIOLOGY REPORT (SQ) ---
EXAM DESCRIPTION: CTA CHEST COMPLETED DATE/TIME: 01/31/2018 6:19 pm REASON FOR STUDY: , cough, short of breath, tachycardia COMPARISON: None. TECHNIQUE: CT scan of the chest performed using helical scanning technique with dynamic intravenous contrast injection. Images reviewed with lung, soft tissue and bone windows. Reconstructed coronal and sagittal MPR images reviewed. Additional 3 dimensional post-processing performed to develop Maximal Intensity Projection images (GA P). All images stored on PACS. All CT scanners at this facility use dose modulation, iterative reconstruction, and/or weight based d osing when appropriate to reduce radiation dose to as low as reasonably achievable (ALARA). [facility]: Dose Right [facility]: CareDose [facility]: Dose Right [facility]: Teradose 4D [facility]: Acrinta CONTRAST TYPE AND DOSE: contrast/concentration: Isovue 370.00 mg/ml; Total Contrast Delivered: 143.0 ml; Total Saline Delivered: 185.0 ml Contrast bolus optimized for the pulmonary arteries. Not diagnostic for the aorta. RENAL FUNCTION: BUN 4 creatinine 0.42 RADIATION DOSE: CT Rad equipment meets quality standard of care and radiation dose reduction techniq ues were employed. CTDIvol: 6.6 - 20.0 mGy. DLP: 1154 mGy-cm. . LIMITATIONS: None. FINDINGS: LUNGS AND PLEURA: No masses, infiltrates, pneumothorax. No pleural effusions, calcificati ons. AORTA AND GREAT VESSELS: No aneurysm. No dissection. HEART: No pericardial effusion. No significant coronary artery calcifications. PULMONARY ARTERIES: No emboli visualized in the main pulmonary arteries or the segmental branches. HILAR AND MEDIASTINAL STRUCTURES: No identified masses or abnormal nodes. HARDWARE: None in the chest. UPPER ABDOMEN: No significant findings. Limited exam. THYROID AND OTHER SOFT TISSUES: No masses. No adenopathy. BONES: No acute or significant finding. 3D MIPS: Confirm above findings. OTHER: No other significant finding. IMPRESSION: NORMAL CTA OF THE CHEST. NO PULMONARY EMBOLI. COMMENT: Quality ID # [id number]: Final reports with documentation of one or more dose reduction techniques (e.g., Automated exposure control, adjustment of the mA and/or kV according to patient size, use of iterative reconstruction technique) TECHNICAL DOCUMENTATION: JOB ID: [id number] [employer]- All Rights Reserved Reading location - IP/workstation name: [email or web address]
--- NOTE | 2018-01-31 18:55 | EKG REPORT ---
SEVERITY:- OTHERWISE NORMAL ECG - SINUS TACHYCARDIA : Confirmed by: Jeffrey Cordova MD 31-Jan-2018 18:54:35
[2018-01-31 19:01] VITALS: BP 114/83
== END 2018-01-31 19:01 | disposition home or self-care (01) ==
LOC: ER 16:12
DX: O26.93 Pregnancy related conditions, unspecified, third trimester (principal); J06.9 Acute upper respiratory infection, unspecified; R07.9 Chest pain, unspecified; R00.0 Tachycardia, unspecified; M25.511 Pain in right shoulder; Z3A.34 34 weeks gestation of pregnancy
CPT/HCPCS: 36415; 71045; 71275; 80053; 84439; 84443; 85025; 87070; 87880; 93005; 93010; 99285

== ENCOUNTER 2018-03-03 22:05 | Outpatient (CLI) | payer MEDICAID ==
[2018-03-03 22:49] LABS: APPEARANCE,URINE SLIGHTLY-CLOUDY; BILIRUBIN,URINE SMALL (NEGATIVE); GLUCOSE, URINE NEGATIVE (NEGATIVE); KETONES,URINE NEGATIVE (NEGATIVE); LEUKOCYTE ESTERASE,URINE NEGATIVE (NEGATIVE); NITRITE,URINE NEGATIVE (NEGATIVE); PROTEIN,URINE 30 mg/dL (NEGATIVE); URINE SPECIFIC GRAVITY 1.031
[2018-03-03 22:52] LABS: COLOR,URINE DARK YELLOW
[2018-03-03 22:56] LABS: AMNISURE (ROM) NEGATIVE (NEGATIVE)
[2018-03-03 23:14] LABS: URINE AMPHETAMINES SCREEN NEGATIVE; URINE BARBITURATES SCREEN NEGATIVE; URINE BENZODIAZEPINES SCREEN NEGATIVE; URINE COCAINE SCREEN NEGATIVE; URINE MARIJUANA (THC) SCREEN NEGATIVE; URINE METHADONE SCREEN NEGATIVE; URINE PHENCYCLIDINE SCREEN NEGATIVE
[2018-03-03] MEDS ORDERED: HYDROXYZINE PAMOATE 50 MG CAPSULE PO ONE (23:55)
[2018-03-04] MEDS ORDERED: HYDROXYZINE PAMOATE 50 MG CAPSULE ONE
--- NOTE | 2018-03-04 00:14 | Non Stress Test Report ---
Non Stress Test Datetime Report Generated by CPN: 03/04/2018 00:14 DEMOGRAPHIC Test Number: 1 EGA NST: 38.4 INDICATION Indication for Study: Ordered by Provider VITAL SIGNS Temperature - NST: 98.0 RESP - NST: 14 URINE RESULTS Urine Protein, NST: Positive Urine Ketones - NST: Negative Urine Glucose - NST: Negative Urine Blood - NST: Negative MONITORING Monitor Explained: Monitor Explained; Test Explained; Patient Verbalized Understanding Time on Monitor: 03/03/2018 22:41 Time off Monitor: 03/04/2018 00:06 NST Duration: 85 NST INTERVENTIONS NST Interventions: PO Hydration Physician Notified NST: Dr. Luan BABY A: [id number] BABY A Movement : Present Contraction Frequency : irregular FHR Baseline : 135 Accelerations : 15X15 Decelerations : None Variability : Moderate 6-25bpm NST Review: Meets Criteria for Reactive NST NST Review and Verified By : Albertina Morgan, RN NST Results: Reactive NST REPORT Report Trigger: Send Report
[2018-03-04 00:24] LABS: CHLAM PCR NOT DETECTED (NOT DETECT); GON PCR NOT DETECTED (NOT DETECT)
== END 2018-03-04 00:06 | disposition home or self-care (01) ==
LOC: RAD 22:05 → LC 22:05
PROVIDERS: ATTEND Obstetrics & Gynecology
PROC: 4A1HXCZ Monitoring of Products of Conception, Cardiac Rate, External Approach (ICD-10-PCS; principal; 2018-03-03)
DX: O47.1 False labor at or after 37 completed weeks of gestation (principal); Z3A.38 38 weeks gestation of pregnancy
CPT/HCPCS: 59025; 84112; 81005; 80307; 87491; 87591; J3490

== ENCOUNTER 2018-03-04 03:42 | Inpatient (IN) | payer MEDICAID ==
[2018-03-04] MEDS ORDERED: CEFAZOLIN SODIUM 2 GM in DEXTROSE 5%-WATER 50 ML IV PRN (04:50)
[2018-03-04] MEDS ORDERED: CITRIC ACID/SODIUM CITRATE ORAL SOLN 15 ML UDCUP ONE (04:51)
[2018-03-04] MEDS ORDERED: CEFAZOLIN INJ 1 GM VIAL ONE (04:52)
--- NOTE | 2018-03-04 05:16 | Admission Physical ---
Datetime Report Generated by CPN: 03/04/2018 05:16 CURRENT ADMISSION Chief Complaint: Uterine Contractions Indication for Induction: Not Applicable Admit Impression : Term, Intrauterine ; Repeat Section; Tubal Ligation Admit Impression- Other: previous c/section x 2. desires permanent sterilization. currently in labor with significant cervical change Admit Plan: Admit to Unit; Initiate Section Protocol ALLERGIES Medication Allergies: No Medication Allergies: No Known Drug Allergies (03/04/2018) Latex: No Latex Allergies OBSTETRICAL HISTORY EDC: 03/13/2018 00:00 : 3 Para: 2 Term: 2 : 0 SAB: 0 IAB: 0 Livin Gestational Diabetes: No Rh Sensitization: No Incompetent Cervix: No VELIA: No Infertility: No ART Treatment: No Uterine Anomaly: No IUGR: Unknown Hx Previous C/S: Yes Macrosomia: No Hx Loss/Stillborn: No PIH: No Hx : No Placenta Previa/Abruption: No Depression/PP Depression: No PTL/PROM: No Post Hemorrhage: No Current Procedures: Ultrasound; NST Obstetrical History Comments: g1- 2014, male, 40 weeks, 7lb 14oz, csection, breech presentation g2-2015, female, 0 weeks, 7lb 5oz, csection g3-current, watching the babies weight and height per patient and the umbilical cord, records indicate that 2 vessel cord present on anatomy scan but imaging at [facility] reflects 3 vessel cord, also per records poor growth, possible brachycephaly, and short long bones (Annotations: Data stored by N on behalf of user) SEE RECORDS Alcohol: No Marijuana : No Cocaine: No Other Illicit Drugs: No Cigarettes: Never Smoker. 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 Surgery: No Heart Disease: No Hosp/Surgery: Yes Autoimmune Disorder: No Anesthetic Complications: No Kidney Disease: Yes Abnormal Pap Smear: No Neuro/Epilepsy: No Psychiatric Disorders: Yes Other Medical Diseases: Yes Hepatitis/Liver Disease: No Significant Family History: No Varicosities/Phlebitis: No Trauma/Violence : No Thyroid Dysfunction: No Medical History Comments: c/s x 2, gallbladder removal, ovarian cysts, ADD, BV, Chlamydia, GERD, UTIs, yeast infection, obesity INFECTIOUS HISTORY Gonorrhea: No Genital Herpes: No Chlamydia: Yes Tuberculosis: No Syphilis: No Hepatitis: No HIV/AIDS Exposure: No Rash or Viral Illness: No HPV: No PHYSICAL EXAM General: Normal HEENT: Normal Neurologic: Normal Thyroid: Normal Heart: Normal Lungs: Normal Breast: Normal Back: Normal Abdomen: Normal Genitourinary Exam: Normal Extremities: Normal DTRs: Normal Pelvic Type: Adequate Vital Signs: Reviewed VAGINAL EXAM Dilatation: 4 Effacement: 90 Station: -3 FETUS A EGA: 38.5 Monitoring: External US FHR- Baseline: 130 Variability: Moderate 6-25bpm Accelerations: 15X15 Decelerations: None FHR Category: Category I Estimated Weight (gm): 3500 Presentation: Vertex PLANS FOR LABOR AND DELIVERY Labor and Delivery: None Pain Management: Spinal Feeding Preference: Both Benefit of Breast Feed Discussed: Yes Circumcision: Yes INFORMED CONSENT Signature: with User ID: [email or web address]
[2018-03-04 05:18] LABS: ABSOLUTE MONOCYTES (AUTO) 0.7 10^3/uL (0.1-1.4); ABSOLUTE NEUT (AUTO) 5.8 10^3/uL (1.7-8.2); BASOPHILS % (AUTO) 0.3 % (0-2); EOSINOPHILS % (AUTO) 0.1 % (0-6); HEMOGLOBIN 11.3 g/dL (12.0-15.5); LYMPHOCYTES % (AUTO) 13.5 % (13-45); MEAN CORPUSCULAR HEMOGLOBIN 31.4 pg (27.0-33.4); MEAN CORPUSCULAR HGB CONC 35.2 g/dL (32.0-36.0); MEAN CORPUSCULAR VOLUME 89 fl (80-97); MONOCYTES % (AUTO) 9.1 % (3-13); PLATELET COUNT 157 10^3/uL (150-450); RED BLOOD COUNT 3.59 10^6/uL (3.72-5.28); RED CELL DISTRIBUTION WIDTH 12.9 % (11.5-14.0); TOTAL CELLS COUNTED % (AUTO) 100 %; WHITE BLOOD COUNT 7.6 10^3/uL (4.0-10.5)
[2018-03-04] MEDS ORDERED: PROPOFOL INJ 200 MG/20 ML VIAL IV ONE (05:20)
[2018-03-04] MEDS ORDERED: EPHEDRINE SULFATE INJ 50 MG/1 ML AMPULE ONE (05:20)
[2018-03-04] MEDS ORDERED: FENTANYL CITRATE INJ/PF 100 MCG/2 ML AMPUL ONE ×2 (05:20→07:58)
[2018-03-04] MEDS ORDERED: MIDAZOLAM 2 MG/2 ML INJ ONE (05:20)
[2018-03-04] MEDS ORDERED: OXYTOCIN 10 UNIT/ML VIAL ONE (05:20)
[2018-03-04] MEDS ORDERED: TETRACAINE HCL/PF 20MG/2ML AMPULE (SPINAL) ONE (05:21)
[2018-03-04] MEDS ORDERED: RINGERS SOLUTION,LACTATED 1,000 ML IV PRN (05:21)
[2018-03-04] MEDS ORDERED: HYDROMORPHONE HCL INJ/PF 2 MG/ML AMPULE ONE (05:22)
[2018-03-04] MEDS ORDERED: MISOPROSTOL 0.2 MG TABLET ONE (05:25)
[2018-03-04] MEDS ORDERED: MEPERIDINE HCL/PF INJ 25 MG/1 ML DISP.SYRIN IV PRN (05:58)
[2018-03-04] MEDS ORDERED: DIPHENHYDRAMINE HCL 50 MG/ML VIAL IV PRN (05:58)
[2018-03-04] MEDS ORDERED: PROMETHAZINE HCL INJ 25 MG/1 ML VIAL IV PRN ×2 (05:58→06:29)
[2018-03-04] MEDS ORDERED: FENTANYL CITRATE INJ/PF 100 MCG/2 ML AMPUL IV PRN ×3 (05:58)
[2018-03-04 06:05] LABS: RUBELLA INTERPRETATION POSITIVE
[2018-03-04] MEDS ORDERED: OXYTOCIN/NORMAL SALINE 20 UNIT/1,000 ML RTUINJ IV PRN (06:29)
[2018-03-04] MEDS ORDERED: MEASLES,MUMPS&RUBELLA VACC/PF 0.5 ML VIAL SUBCUT PRN (06:29)
[2018-03-04] MEDS ORDERED: DIPH/PERTUSS(ACELL)/TETANUS VAC/PF 0.5 ML SYR (>=10YO) IM PRN (06:29)
[2018-03-04] MEDS ORDERED: OXYCODONE-ACETAMINOPHEN 5-325 MG TABLET PO PRN (06:29)
[2018-03-04] MEDS ORDERED: MORPHINE SULFATE 10 MG/ML INJ IV PRN (06:29)
[2018-03-04] MEDS ORDERED: ACETAMINOPHEN 325 MG TABLET PO PRN (06:29)
[2018-03-04] MEDS ORDERED: NORMAL SALINE 1000 ML 1,000 ML IV PRN (06:29)
[2018-03-04] MEDS ORDERED: ACETAMINOPHEN 100 ML IV PRN (06:29)
--- NOTE | 2018-03-04 06:50 | Warning Signs in Babies ---
VOD Warning Signs Datetime Report Generated by [facility]: 03/04/2018 06:50 VOD#608 -Warning Signs in Babies: Needs to be viewed. (03/04/2018 06:31:Marlen Mora RN)
[2018-03-04] MEDS ORDERED: KETOROLAC TROMETHAMINE INJ/PF 30 MG/1 ML SDV ONE (06:59)
[2018-03-04] MEDS ORDERED: ACETAMINOPHEN 100 ML IV ONE (06:59)
[2018-03-04] MEDS ORDERED: OXYTOCIN/NORMAL SALINE 20 UNIT/1,000 ML RTUINJ ONE (06:59)
[2018-03-04] MEDS ORDERED: KETOROLAC TROMETHAMINE INJ/PF 30 MG/1 ML SDV IV ONE (07:00)
--- NOTE | 2018-03-04 07:20 | OPERATIVE REPORT E ---
Operative Report NAME: ACE LOWRY : 1995 AGE: 22Y DATE OF SURGERY: 03/04/2018 ROOM: LR200 PREOPERATIVE DIAGNOSES: 1. IUP at 38 weeks and 3 days. 2. Previous x2. 3. Active labor. 4. Undesired fertility. POSTOPERATIVE DIAGNOSES: 1. IUP at 38 weeks and 3 days. 2. Previous x2. 3. Active labor. 4. Undesired fertility. SURGEON: ROC LAUREN M.D. ANESTHESIA: Dr. Penn with general, per patient request. FINDINGS: Male in cephalic presentation with Apgars of 9 and 9, short umbilical cord. ESTIMATED BLOOD LOSS: 700 mL. Normal uterus, tubes, and ovaries. Small amount of scar tissue of the lower uterine segment to the bladder. PATHOLOGY: Bilateral fallopian tubes. PROCEDURE: Low transverse hysterotomy section with [place] tubal ligation. INDICATIONS: The patient presented at 38 weeks and 3 days in active labor with cervical dilation from 2-4 cm within less than half an hour. The patient indicated on her arrival in front of several nurses that were present, including Mars Perez that she did indeed desire a tubal ligation. This was repeated in front of the OR staff when we were in the OR and before the patient was given any kind of pain relief and she did confirm several times that she desires tubal ligation. PROCEDURE IN DETAIL: The patient was taken to the operating room and prepared and draped in a normal sterile fashion in the supine position with a leftward tilt. A transverse skin incision was made with a scalpel and carried through to the underlying layer of fascia. With the same scalpel, the fascia was incised in the midline and extended laterally with surgeon finger fracture. The rectus muscle was divided and peritoneal cavity was entered bluntly. With good visualization of the bladder and the uterus, the bladder blade was inserted. The hysterotomy was nicked with a scalpel and extended laterally with surgeon finger fracture. The infant was then delivered atraumatically. The nose and mouth were suctioned with a suction bulb and the cord was clamped and cut and the infant was handed off to awaiting chef french. The cord blood was collected. The placenta was removed manually. The uterus was exteriorized and cleared of clots and debris. The hysterotomy was closed with 0 Monocryl in a running, locked fashion and a second layer of the same suture was used in an imbricating fashion to ensure hemostasis. Beginning with the left fallopian tube, the left fallopian tube was grasped with a [place] and this mesosalpinx was divided using the Bovie. Approximately 3.5 cm of fallopian tube was then tied off with 2 pieces of 2-0 Chromic and the intermediate section was removed with Metzenbaum's. The pedicles were coagulated with Bovie. This was repeated on the right fallopian tube without difficulty and the uterus was then returned to the abdomen and the peritoneal cavity was cleared of clots and debris. The pedicles were reinspected and found to be hemostatic. Rectus muscle and peritoneum were reapproximated with mattress stitch of 2-0 Chromic. The fascia was closed with 0 Vicryl. The subcutaneous layer was closed with plain catgut and the skin was closed with 4-0 Vicryl. The patient tolerated the procedure well. Sponge, lap, and needle counts were correct x2 and the patient was taken to recovery in stable condition. DICTATING PHYSICIAN: ROC LAUREN M.D. [id number] PHY#: [id number] ID: [id number] JOB#: [id number] ACCT: [id number] cc:ROC LAUREN M.D. >
--- NOTE | 2018-03-04 08:56 | Delivery Summary ---
Del Sum A-C Datetime Report Generated by CPN: 03/04/2018 08:56 DELIVERY PERSONNEL DELIVERY PERSONNEL: [id number] Delivery Doctor:: Mary Roland MD Anesthesiologist:: Samia Penn MD NEEDLE PUNCH MACHINE OPERATOR HELPER:: Nicolás Comer, NEEDLE PUNCH MACHINE OPERATOR HELPER Labor and Delivery Nurse:: Marlen Barronco, RN Medical Fee Clerk/PACK OPERATOR: Diane Lópeza, PACK OPERATOR MATERNAL INFORMATION Delivery Anesthesia: General Medications After Delivery: Pitocin Bolus-Please Comment Maternal Complications: None LABOR SUMMARY EDC: 03/13/2018 00:00 No. Babies in Womb: 1 Attempted: No LABOR INFORMATION Reason for Induction: Not Applicable Onset of Labor: 03/04/2018 04:45 Group B Beta Strep: negative Antibiotics # of Doses: 0 Steroids Given: None Reason Steroids Not Administered: Not Applicable MEMBRANES Membranes Rupture Method: IN OR Rupture of Membranes: 03/04/2018 05:46 Length of Rupture (hr): 0.00 STAGES OF LABOR Stage 3 hr: 0 Stage 3 min: 0 Total Time in Labor hr: 1 Total Time in Labor min: 1 CSECTION DELIVERY Primary Indication: Repeat CSection Urgency: Non-Scheduled CSection Incidence: Repeat Labor: Labor Elective: Nonelective CSection Incision: Lower Uterine Transverse BABY A INFORMATION Infant Delivery Date/Time: 03/04/2018 05:46 Method of Delivery: Born in Route : No : N/A Forceps: N/A Vacuum Extraction: N/A Shoulder Dystocia : No PRESENTATION/POSITION BABY A Presentation: Cephalic Cephalic Presentation: Vertex Breech Presentation: N/A PLACENTA INFORMATION BABY A Placenta Delivery Time : 03/04/2018 05:46 Placenta Method of Delivery: Expressed Placenta Status: Delivered INFORMATION BABY A Gestational Age at Delivery: 38.5 Gestational Status: Early Term- 37- 38.6 Weeks Infant Outcome : Liveborn Infant Condition : Stable Infant Sex: Male IDENTIFICATION BABY A Verification Date/Time: 03/04/2018 05:52 ID Band Number: [id number] Mother's Name Verified: Yes Infant RN Verifying Infant: KBhumika Barronco, RN Additional Verifying Personnel: ABhumika Petersen, RN CORD INFORMATION BABY A No. Cord Vessels: 3 Nuchal Cord : N/A Cord Blood Taken: Yes-For Eval (Mom's Blood Type - or O+) ASSESSMENT BABY A Skin to Skin: Yes
[2018-03-04] MEDS: PRENATAL VITAMIN W DHA CAPSULE PO SCH (10:23)
[2018-03-04] MEDS: DOCUSATE SODIUM 100 MG CAPSULE PO SCH ×2 (10:23→18:17)
[2018-03-04] MEDS ORDERED: ONDANSETRON HCL INJ/PF 4 MG/2 ML SDV ONE (12:59)
[2018-03-04] MEDS ORDERED: DEXAMETHASONE SOD PHOSPHATE INJ 4 MG/1 ML VIAL ONE (12:59)
[2018-03-04] MEDS ORDERED: SUCCINYLCHOLINE CHLORIDE INJ 200 MG/10 ML VIAL ONE (12:59)
[2018-03-04] MEDS: SIMETHICONE 80 MG TAB.CHEW PO PRN (13:19)
[2018-03-04] MEDS: OXYCODONE-ACETAMINOPHEN 5-325 MG TABLET PO PRN ×2 (14:18→18:17)
[2018-03-04] MEDS: KETOROLAC TROMETHAMINE INJ/PF 30 MG/1 ML SDV IV SCH ×2 (14:18→22:22)
[2018-03-05] MEDS: OXYCODONE-ACETAMINOPHEN 5-325 MG TABLET PO PRN ×2 (02:36→18:57)
[2018-03-05] MEDS: KETOROLAC TROMETHAMINE INJ/PF 30 MG/1 ML SDV IV SCH (05:34)
[2018-03-05] MEDS: SIMETHICONE 80 MG TAB.CHEW PO PRN ×2 (05:41→09:59)
[2018-03-05 06:39] LABS: HEMATOCRIT 28.4 % (36.0-47.0); HEMOGLOBIN 9.9 g/dL (12.0-15.5); MEAN CORPUSCULAR HEMOGLOBIN 31.1 pg (27.0-33.4); MEAN CORPUSCULAR VOLUME 89 fl (80-97); PLATELET COUNT 147 10^3/uL (150-450); RED CELL DISTRIBUTION WIDTH 13.2 % (11.5-14.0); WHITE BLOOD COUNT 8.3 10^3/uL (4.0-10.5)
[2018-03-05] MEDS: DOCUSATE SODIUM 100 MG CAPSULE PO SCH ×2 (09:55→18:12)
[2018-03-05] MEDS: PRENATAL VITAMIN W DHA CAPSULE PO SCH (09:55)
--- NOTE | 2018-03-05 10:20 | PDOC PROGRESS REPORT ---
Subjective-OB Progress Note for:: 03/05/18 Subjective: s/p r c/s day #1 denies concerns, doing well, lochia is stable, pain well controlled, voiding without difficulty, lochia is stable Physical Exam (OB) Vital Signs: Temp Pulse Resp BP Pulse Ox 98.4 F 88 16 115/69 96 03/05/18 07:31 03/05/18 07:31 03/05/18 07:31 03/05/18 07:31 03/05/18 07:31 Intake & Output 03/04/18 03/05/18 03/06/18 06:59 06:59 06:59 Intake Total 1530 Output Total 50 Balance 1480 Weight 95 kg - PIH/Pre-Eclampsia DTR's: 2 + Clonus: Negative Headache: Absent Epigastric Pain: No Visual Changes: No - Dressing Removed: No - Opsite; small amt drainage noted Incision: Dressing, Draining Closure Type: Surgical Glue - Lochia Lochia Amount: Scant < 10 ml Lochia Color: Rubra/Red - Abdomen Description: Tender, Soft, Round Hernia Present: No Fundal Description: Firm, Midline Fundal Height: u/u - u/2 Objective-Diagnostic Laboratory: 03/05/18 06:24 03/05/18 06:24 WBC 8.3 RBC 3.20 L Hgb 9.9 L Hct 28.4 L MCV 89 MCH 31.1 MCHC 35.0 RDW 13.2 Plt Count 147 L Assessment and Plan(PN) - Assessment and Plan (1) Status post Is this a current diagnosis for this admission?: Yes Plan: routine post opcare - Time Spent with Patient Time with patient: Less than 15 minutes Critical Time spent with patient: Less than 15 minutes Smoking Education Provided: Over 3 minutes Medications reviewed and adjusted accordingly: Yes - Disposition Anticipated Discharge: Home Within: within 24 hours
[2018-03-05 12:41] LABS: APPEARANCE,URINE SLIGHTLY-CLOUDY; BILIRUBIN,URINE NEGATIVE (NEGATIVE); COLOR,URINE YELLOW; GLUCOSE, URINE NEGATIVE (NEGATIVE); KETONES,URINE NEGATIVE (NEGATIVE); LEUKOCYTE ESTERASE,URINE NEGATIVE (NEGATIVE); NITRITE,URINE NEGATIVE (NEGATIVE); PROTEIN,URINE 30 mg/dL (NEGATIVE); URINE SPECIFIC GRAVITY 1.013
[2018-03-05 12:52] LABS: URINE AMPHETAMINES SCREEN NEGATIVE; URINE BARBITURATES SCREEN NEGATIVE; URINE BENZODIAZEPINES SCREEN NEGATIVE; URINE COCAINE SCREEN NEGATIVE; URINE MARIJUANA (THC) SCREEN NEGATIVE; URINE METHADONE SCREEN NEGATIVE; URINE PHENCYCLIDINE SCREEN NEGATIVE
[2018-03-05] MEDS: IBUPROFEN 800 MG TABLET PO SCH ×2 (14:53→20:46)
[2018-03-06] MEDS: OXYCODONE-ACETAMINOPHEN 5-325 MG TABLET PO PRN (00:05)
[2018-03-06] MEDS: IBUPROFEN 800 MG TABLET PO SCH ×2 (03:16→09:02)
[2018-03-06] MEDS: DOCUSATE SODIUM 100 MG CAPSULE PO SCH (09:02)
[2018-03-06] MEDS: SIMETHICONE 80 MG TAB.CHEW PO PRN (09:03)
[2018-03-06] MEDS: PRENATAL VITAMIN W DHA CAPSULE PO SCH (09:03)
--- NOTE | 2018-03-06 09:33 | PDOC DISCHARGE SUMMARY ---
Final Diagnosis Discharge Date: 03/06/18 - Final Diagnosis (1) Status post Is this a current diagnosis for this admission?: Yes (2) Acute blood loss anemia Is this a current diagnosis for this admission?: Yes Discharge Data - Discharge Medication Prescriptions: Oxycodone HCl/Acetaminophen [Percocet 5-325 mg Tablet] 2 tab PO Q4HP PRN #30 tablet PRN Reason: Docusate Sodium [Colace 100 mg Capsule] 100 mg PO BID #60 capsule Ferrous Sulfate 325 mg PO BID #60 tablet. Ibuprofen [Motrin 800 mg Tablet] 800 mg PO Q6A #60 tablet Home Medications: Multivitamins W-Iron [Flintstones Chewable Multivit W/Fe Tab] 1 tab PO DAILY Docusate Sodium [Colace 100 mg Capsule] 100 mg PO BID #60 capsule 03/06/18 Ferrous Sulfate 325 mg PO BID #60 tablet. 03/06/18 Ibuprofen [Motrin 800 mg Tablet] 800 mg PO Q6A #60 tablet 03/06/18 Oxycodone HCl/Acetaminophen [Percocet 5-325 mg Tablet] 2 tab PO Q4HP PRN #30 tablet 03/06/18 Gestational Age: 38.5 Reason(s) for Admission: Ceasarean Section-Repeat Procedures: NST Intrapartum Procedure(s): : Low Cervical, Transverse - Whitney Data Baby 1 Male Home with Mother: Yes Complications: No - Diagnosis Test Laboratory: Temp Pulse Resp BP Pulse Ox 98.1 F 101 H 14 112/76 96 03/06/18 07:25 03/06/18 07:25 03/06/18 07:25 03/06/18 07:25 03/06/18 07:25 03/04/18 03/05/18 03/05/18 05:04 06:24 12:07 RBC 3.59 L 3.20 L Hgb 11.3 L 9.9 L Hct 32.0 L 28.4 L Urine Opiates Screen UNCONFIRMED POSITIVE - Discharge information/Instructions Discharge Activity: Activity As Tolerated, Pelvic Rest, No tub bath Discharge Diet: Regular Disposition: HOME, SELF-CARE Follow up with: [facility] in: 1, Weeks - f/u @ [facility], disengaged from [facility]
[2018-03-06 10:07] VITALS: BP 112/76
== END 2018-03-06 13:14 | disposition home or self-care (01) | DRG 765 ==
LOC: LC 03:42 → LR 04:57 → 2S 08:25
PROVIDERS: ADMIT Obstetrics & Gynecology; ATTEND Obstetrics & Gynecology
PROC: 10D00Z1 Extraction of Products of Conception, Low, Open Approach (ICD-10-PCS; principal; 2018-03-04)
PROC: 0UB70ZZ Excision of Bilateral Fallopian Tubes, Open Approach (ICD-10-PCS; 2018-03-04)
PROC: 4A1HXCZ Monitoring of Products of Conception, Cardiac Rate, External Approach (ICD-10-PCS; 2018-03-04)
DX: O34.211 Maternal care for low transverse scar from previous cesarean delivery (principal); D62 Acute posthemorrhagic anemia; O99.02 Anemia complicating childbirth; O99.214 Obesity complicating childbirth; E66.9 Obesity, unspecified; O99.62 Diseases of the digestive system complicating childbirth; K21.9 Gastro-esophageal reflux disease without esophagitis; Z68.37 Body mass index [BMI] 37.0-37.9, adult; Z86.19 Personal history of other infectious and parasitic diseases; Z30.2 Encounter for sterilization; Z3A.38 38 weeks gestation of pregnancy; Z37.0 Single live birth
CPT/HCPCS: 1961; 36415; 80307; 81001; 85025; 85027; 86762; 86850; 86900; 86901; 88302; 94799; J0131; J0330; J0690; J1100; J1170; J1885; J2250; J2270; J2405; J2590; J2704; J3010; J3490; J7120

== ENCOUNTER 2018-03-13 12:28 | Inpatient (IN) | payer MEDICAID ==
--- NOTE | 2018-03-13 13:35 | ER Document Report ---
ED Medical Screen (RME) - General Chief Complaint: Post Surgical Pain Stated Complaint: POST OP PAIN Time Seen by Provider: 03/13/18 13:31 TRAVEL OUTSIDE OF THE [place] IN LAST 30 DAYS: No - HPI Patient complains to provider of: abdominal pain Notes: 03/13/18 13:33 22-year-old female presents approximately 2 weeks after section at this hospital. With 10/10 lower abdominal pain/suprapubic pain sharp in nature with radiation to her left side. Started this morning acutely followed by large gush of blood from her vagina. Nothing is made the pain better or worse. Lump" on the left side of her incision is gotten bigger and bigger and causing her more discomfort. Patient had an issue with the surgeon is not able to follow-up with the group in this community. Rest fever chills or any trauma to her abdomen. - Related Data Allergies/Adverse Reactions: No Known Drug Allergies Allergy (Verified 03/13/18 12:28) Past Medical History - Social History Chew tobacco use (# tins/day): No Frequency of alcohol use: None Drug Abuse: None Neurological Medical History: Reports: Hx Migraine Renal/ Medical History: Reports: Hx Ovarian Cysts. Denies: Hx Peritoneal Dialysis Musculoskeltal Medical History: Denies Hx Arthritis Past Surgical History: Reports: Hx Section - x3, Hx Cholecystectomy, Hx Tubal Ligation. Denies: Hx Hysterectomy - Immunizations Immunizations up to date: Yes Hx Diphtheria, Pertussis, Tetanus Vaccination: Yes Review of Systems - Review of Systems Notes: REVIEW OF SYSTEMS: CONSTITUTIONAL: -fevers, -chills EENT: -eye pain, -difficulty swallowing, -nasal congestion CARDIOVASCULAR: -chest pain, -syncope. RESPIRATORY: -cough, -SOB GASTROINTESTINAL: + abdominal pain, -nausea, -vomiting, -diarrhea GENITOURINARY: -dysuria, -hematuria MUSCULOSKELETAL: -back pain, -neck pain SKIN: -rash or skin lesions. HEMATOLOGIC: -easy bruising or bleeding. LYMPHATIC: -swollen, enlarged glands. NEUROLOGICAL: -altered mental status or loss of consciousness, -headache, - neurologic symptoms PSYCHIATRIC: -anxiety, -depression. ALL OTHER SYSTEMS REVIEWED AND NEGATIVE. Physical Exam - Vital signs Vitals: Temp Pulse Resp BP Pulse Ox 98.5 F 101 H 18 136/85 H 99 03/13/18 12:41 03/13/18 12:41 03/13/18 12:41 03/13/18 12:41 03/13/18 12:41 - Notes Notes: PHYSICAL EXAMINATION: GENERAL: Well-appearing, well-nourished and in no acute distress. HEAD: Atraumatic, normocephalic. EYES: Pupils equal round and reactive to light, extraocular movements intact, sclera anicteric, conjunctiva are normal. ENT: nares patent, oropharynx clear without exudates. Moist mucous membranes. NECK: Normal range of motion, supple without lymphadenopathy LUNGS: Breath sounds clear to auscultation bilaterally and equal. No wheezes rales or rhonchi. HEART: Regular rate and rhythm without murmurs ABDOMEN: Surgical incision with Steri-Strips in place. No malodorous smell does not appear infected, seroma or other mass palpated on patient's left side of the incision. EXTREMITIES: Normal range of motion, no pitting or edema. No cyanosis. NEUROLOGICAL: Cranial nerves grossly intact. Normal speech, normal gait. Normal sensory and motor exams. PSYCH: Normal mood, normal affect. SKIN: Warm, Dry, normal turgor, no rashes or lesions noted. Course - Vital Signs Vital signs: Temp Pulse Resp BP Pulse Ox 98.5 F 101 H 18 136/85 H 99 03/13/18 12:41 03/13/18 12:41 03/13/18 12:41 03/13/18 12:41 03/13/18 12:41 Doctor's Discharge - Discharge Referrals: ROC LAUREN MD [Primary Care Provider] - Follow up as needed
[2018-03-13 14:13] LABS: ABSOLUTE EOSINOPHILS # (AUTO) 0.1 10^3/uL (0.0-0.6); ABSOLUTE LYMPHOCYTES (AUTO) 1.1 10^3/uL (0.5-4.7); ABSOLUTE MONOCYTES (AUTO) 0.8 10^3/uL (0.1-1.4); ABSOLUTE NEUT (AUTO) 14.6 10^3/uL (1.7-8.2); BASOPHILS % (AUTO) 0.2 % (0-2); EOSINOPHILS % (AUTO) 0.8 % (0-6); HEMATOCRIT 38.6 % (36.0-47.0); HEMOGLOBIN 13.5 g/dL (12.0-15.5); LYMPHOCYTES % (AUTO) 6.9 % (13-45); MEAN CORPUSCULAR HEMOGLOBIN 30.6 pg (27.0-33.4); MEAN CORPUSCULAR HGB CONC 34.9 g/dL (32.0-36.0); MEAN CORPUSCULAR VOLUME 88 fl (80-97); MONOCYTES % (AUTO) 4.8 % (3-13); PLATELET COUNT 337 10^3/uL (150-450); RED CELL DISTRIBUTION WIDTH 13.1 % (11.5-14.0); SEGMENTED NEUTROPHILS % (AUTO) 87.3 % (42-78); TOTAL CELLS COUNTED % (AUTO) 100 %; WHITE BLOOD COUNT 16.7 10^3/uL (4.0-10.5)
[2018-03-13 14:19] LABS: APPEARANCE,URINE SLIGHTLY-CLOUDY; BILIRUBIN,URINE NEGATIVE (NEGATIVE); COLOR,URINE YELLOW; GLUCOSE, URINE NEGATIVE (NEGATIVE); KETONES,URINE NEGATIVE (NEGATIVE); LEUKOCYTE ESTERASE,URINE NEGATIVE (NEGATIVE); NITRITE,URINE NEGATIVE (NEGATIVE); PROTEIN,URINE 30 mg/dL (NEGATIVE); URINE SPECIFIC GRAVITY 1.018
[2018-03-13 14:34] LABS: ANION GAP 13 (5-19); BLOOD UREA NITROGEN 6 mg/dL (7-20); CALCIUM 9.6 mg/dL (8.4-10.2); CARBON DIOXIDE 28 mmol/L (22-30); CHLORIDE 104 mmol/L (98-107); GLUCOSE 90 mg/dL (75-110); POTASSIUM 3.2 mmol/L (3.6-5.0); SODIUM 144.7 mmol/L (137-145)
--- NOTE | 2018-03-13 15:44 | ER Document Report ---
ED General - General Chief Complaint: Post Surgical Pain Stated Complaint: POST OP PAIN Time Seen by Provider: 03/13/18 13:31 Notes: 22-year-old female presents emergency department complaining of increasing pain to the bilateral hands of her incision with what she complains of as bowls on the end of her incisions. States that the pain is been increasing and she had a gush of bloody fluid today that she states is heavier than her regular periods. Admits sweats and chills, denies objective fevers, denies purulent vaginal discharge. Patient had a on the and has not been able to follow-up with OB since then. TRAVEL OUTSIDE OF THE [place] IN LAST 30 DAYS: No - Related Data Allergies/Adverse Reactions: No Known Drug Allergies Allergy (Verified 03/13/18 12:28) Past Medical History - General Information source: Patient - Social History Smoking Status: Never Smoker Chew tobacco use (# tins/day): No Frequency of alcohol use: None Drug Abuse: None Family History: Reviewed & Not Pertinent Patient has suicidal ideation: No Patient has homicidal ideation: No Neurological Medical History: Reports: Hx Migraine Renal/ Medical History: Reports: Hx Ovarian Cysts. Denies: Hx Peritoneal Dialysis Musculoskeltal Medical History: Denies Hx Arthritis Past Surgical History: Reports: Hx Section - x3, Hx Cholecystectomy, Hx Tubal Ligation. Denies: Hx Hysterectomy - Immunizations Immunizations up to date: Yes Hx Diphtheria, Pertussis, Tetanus Vaccination: Yes Review of Systems - Review of Systems Constitutional: See HPI, Chills, Diaphoresis EENT: No symptoms reported Gastrointestinal: See HPI Genitourinary: See HPI Female Genitourinary: See HPI Skin: See HPI -: Yes All other systems reviewed and negative Physical Exam - Vital signs Vitals: Temp Pulse Resp BP Pulse Ox 98.5 F 101 H 18 136/85 H 99 03/13/18 12:41 03/13/18 12:41 03/13/18 12:41 03/13/18 12:41 03/13/18 12:41 Interpretation: Tachycardic - Notes Notes: GENERAL: Alert, interacts well. No acute distress. HEAD: Normocephalic, atraumatic EYES: Pupils equal, round and reactive to light, extraocular movements intact. ENT: Oral mucosa moist, tongue midline. NECK: Full range of motion, supple, trachea midline. LUNGS: no respiratory distress. HEART: Tachycardic. ABDOMEN: Soft, tender palpation around the incision, most tender at either end, small amount of swelling underneath the incision at either end, no fluctuance noted, there is a small amount of erythema noted around the incision although I suspect this is more related to the patient's stomach having folded over on itself creating a rather warm environment, no evidence of secondary bacterial infection, no discharge from the well approximated incision where the Steri-Strips are still in place. EXTREMITIES: Moves all 4 extremities spontaneously, no edema. No cyanosis. NEUROLOGICAL: Alert and oriented x3, normal speech. PSYCH: Normal mood, normal affect. SKIN: Warm, Dry. Course - Re-evaluation Re-evalutation: 03/13/18 15:41 CBC shows leukocytosis at 16.7 however this could very well be related to the C- section approximately a week ago. Discussed with Dr. Lauren who will see the patient in the emergency department. 03/13/18 16:25 Dr. Lauren feels that there is a mild cellulitis around the incision, recommends prescribing Keflex as well as tramadol for pain control and discharging to home. Will follow-up in the office later this week. - Vital Signs Vital signs: Temp Pulse Resp BP Pulse Ox 98.5 F 101 H 18 136/85 H 99 03/13/18 12:41 03/13/18 12:41 03/13/18 12:41 03/13/18 12:41 03/13/18 12:41 - Laboratory Result Diagrams: 03/13/18 13:41 03/13/18 13:41 Laboratory results interpreted by me: 03/13/18 03/13/18 03/13/18 13:41 13:41 13:41 WBC 16.7 H Seg Neutrophils % 87.3 H Lymphocytes % 6.9 L Absolute Neutrophils 14.6 H Potassium 3.2 L BUN 6 L Urine Protein 30 H Urine Blood LARGE H Urine Urobilinogen 4.0 H Discharge - Discharge Clinical Impression: section wound complication Superficial postoperative wound infection Qualifiers: Encounter type: initial encounter Qualified Code(s): T81.4XXA - Infection following a procedure, initial encounter Condition: Stable Disposition: HOME, SELF-CARE Additional Instructions: You have a very mild and of the skin around her incision. We have prescribed antibiotics to take for the next 7 days. Please use ibuprofen ( Motrin or Advil) 600-800 mg every 8 hours as needed for pain or fever. You may also use acetaminophen (Tylenol) 1000 mg every 4-6 hours as needed for pain or fever. Please be aware that many medications contain acetaminophen, do not exceed a total of 1000 mg of acetaminophen every 6 hours. If these medications do not completely control your pain you may use the tramadol 1 tablet every 6 hours as needed. You should also consider taking Benadryl at night to help you sleep. Prescriptions: Tramadol HCl 50 mg PO Q6HP PRN #10 tablet PRN Reason: Cephalexin Monohydrate [Keflex 500 mg Capsule] 500 mg PO Q6H 7 Days capsule Referrals: ROC LAUREN MD [ACTIVE STAFF] - Follow up as needed
[2018-03-13] MEDS ORDERED: CEFTRIAXONE 1 GM/D5W RTU 1 GM/50 ML RTUPB IV ONE (16:41)
[2018-03-13] MEDS ORDERED: ONDANSETRON HCL INJ/PF 4 MG/2 ML SDV IV ONE (16:47)
[2018-03-13] MEDS ORDERED: ACETAMINOPHEN 325 MG TABLET PO ONE (16:47)
[2018-03-14] MEDS: IBUPROFEN 800 MG TABLET PO SCH ×4 (00:07→22:19)
--- NOTE | 2018-03-14 00:28 | PDOC H&P ---
History of Present Illness Admission Date/PCP: 03/13/18 17:55 ALO SARABIA MD History of Present Illness: ACE LOWRY is a 22 year old female delivered by c/section approximately 11 days ago. presented to ER with increasing pain at incision site. Had large gush of blood vaginally just prior to pain onset. +chills. Febrile at ER with slight tachycardia Past Medical History Neurological Medical History: Reports: Migraine Musculoskeltal Medical History: Denies: Arthritis Past Surgical History Past Surgical History: Reports: Section - x3, Cholecystectomy, Tubal Ligation Denies: Hysterectomy Social History Smoking Status: Never Smoker - Advance Directive Resuscitation Status: Full Code Family History Family History: Reviewed & Not Pertinent Parental Family History Reviewed: Yes Children Family History Reviewed: Yes Sibling(s) Family History Reviewed.: Yes Medication/Allergy Home Medications: Cephalexin Monohydrate [Keflex 500 mg Capsule] 500 mg PO Q6H 7 Days capsule 01/25 Tramadol HCl 50 mg PO Q6HP PRN #10 tablet 03/13/18 Allergies/Adverse Reactions: No Known Drug Allergies Allergy (Verified 03/13/18 12:28) Review of Systems Constitutional: PRESENT: as per HPI, chills, fever(s) Physical Exam - Physical Exam Vital Signs: Temp Pulse Resp BP Pulse Ox 99.1 F 94 17 120/76 97 03/13/18 20:00 03/13/18 20:00 03/13/18 20:00 03/13/18 20:00 03/13/18 20:00 General appearance: PRESENT: no acute distress, cooperative GI/Abdominal exam: PRESENT: soft, tenderness - at incision site. no drainage. mild erythema just below incision Assessment & Plan - Diagnosis (1) section wound complication Is this a current diagnosis for this admission?: Yes (2) Fever Qualifiers: Fever type: due to other condition Qualified Code(s): R50.81 - Fever presenting with conditions classified elsewhere Is this a current diagnosis for this admission?: Yes (3) Postoperative wound cellulitis Qualifiers: Encounter type: initial encounter Qualified Code(s): T81.4XXA - Infection following a procedure, initial encounter Is this a current diagnosis for this admission?: Yes - Time Time Spent: 30 to 50 Minutes - Inpatient Certification Based on my medical assessment, after consideration of the patient's comorbidities, presenting symptoms, or acuity I expect that the services needed warrant INPATIENT care.: Yes I certify that my determination is in accordance with my understanding of Medicare's requirements for reasonable and necessary INPATIENT services [42 CFR 412.3e].: Yes Medical Necessity: Need for Pain Control, Need for IV Antibiotics - Plan Summary Plan Summary: will give IV rocephin. Pain control as needed. Tyleonol and Motrin as antipyretics.
[2018-03-14] MEDS ORDERED: SIMETHICONE 80 MG TAB.CHEW PO PRN (00:29)
[2018-03-14] MEDS ORDERED: OXYCODONE-ACETAMINOPHEN 5-325 MG TABLET PO PRN (00:29)
[2018-03-14] MEDS ORDERED: PROMETHAZINE HCL INJ 25 MG/1 ML VIAL IV PRN (00:29)
[2018-03-14] MEDS: RINGERS SOLUTION,LACTATED 1,000 ML IV PRN ×3 (03:28→22:20)
[2018-03-14] MEDS: ACETAMINOPHEN 325 MG TABLET PO SCH ×3 (03:32→18:51)
[2018-03-14 08:34] LABS: ABSOLUTE EOSINOPHILS # (AUTO) 0.2 10^3/uL (0.0-0.6); ABSOLUTE LYMPHOCYTES (AUTO) 2.1 10^3/uL (0.5-4.7); ABSOLUTE MONOCYTES (AUTO) 0.6 10^3/uL (0.1-1.4); ABSOLUTE NEUT (AUTO) 4.2 10^3/uL (1.7-8.2); BASOPHILS % (AUTO) 0.7 % (0-2); EOSINOPHILS % (AUTO) 2.6 % (0-6); HEMATOCRIT 31.2 % (36.0-47.0); LYMPHOCYTES % (AUTO) 29.8 % (13-45); MEAN CORPUSCULAR HGB CONC 35.2 g/dL (32.0-36.0); MEAN CORPUSCULAR VOLUME 88 fl (80-97); MONOCYTES % (AUTO) 8.9 % (3-13); PLATELET COUNT 260 10^3/uL (150-450); RED BLOOD COUNT 3.55 10^6/uL (3.72-5.28); RED CELL DISTRIBUTION WIDTH 13.2 % (11.5-14.0); TOTAL CELLS COUNTED % (AUTO) 100 %; WHITE BLOOD COUNT 7.2 10^3/uL (4.0-10.5)
[2018-03-14] MEDS ORDERED: CEFTRIAXONE 1 GM/D5W RTU 1 GM/50 ML RTUPB IV SCH (10:00)
[2018-03-14] MEDS: DOCUSATE SODIUM 100 MG CAPSULE PO SCH ×2 (10:01→17:15)
[2018-03-14] MEDS: PRENATAL VITAMIN W DHA CAPSULE PO SCH (10:01)
[2018-03-14] MEDS: CEFTRIAXONE SODIUM 1,000 MG in DEXTROSE 5%-WATER 50 ML IV SCH ×2 (10:02→22:19)
[2018-03-15] MEDS: ACETAMINOPHEN 325 MG TABLET PO SCH (04:38)
[2018-03-15] MEDS: IBUPROFEN 800 MG TABLET PO SCH (06:06)
[2018-03-15] MEDS: RINGERS SOLUTION,LACTATED 1,000 ML IV PRN (06:08)
[2018-03-15 06:50] LABS: HEMATOCRIT 29.1 % (36.0-47.0); HEMOGLOBIN 10.4 g/dL (12.0-15.5); MEAN CORPUSCULAR HEMOGLOBIN 31.4 pg (27.0-33.4); MEAN CORPUSCULAR HGB CONC 35.6 g/dL (32.0-36.0); MEAN CORPUSCULAR VOLUME 88 fl (80-97); PLATELET COUNT 209 10^3/uL (150-450); RED CELL DISTRIBUTION WIDTH 13.2 % (11.5-14.0); WHITE BLOOD COUNT 6.4 10^3/uL (4.0-10.5)
[2018-03-15] MEDS: DOCUSATE SODIUM 100 MG CAPSULE PO SCH (09:40)
[2018-03-15] MEDS: PRENATAL VITAMIN W DHA CAPSULE PO SCH (09:40)
--- NOTE | 2018-03-15 10:17 | PDOC DISCHARGE SUMMARY ---
General - Admit/Disc Date/PCP Admission Date/Primary Care Provider: 03/13/18 17:55 ALO SARABIA MD Discharge Date: 03/15/18 - Discharge Diagnosis (1) section wound complication Is this a current diagnosis for this admission?: Yes (2) Fever Is this a current diagnosis for this admission?: Yes (3) Postoperative wound cellulitis Is this a current diagnosis for this admission?: Yes - Additional Information Resuscitation Status: Full Code Home Medications: Dextroamphetamine/Amphetamine [Adderall Xr 30 mg Capsule] 30 mg PO QAM 03/14/18 History of Present Illness History of Present Illness: ACE LOWRY is a 22 year old female delivered by c/section approximately 11 days ago. presented to ER with increasing pain at incision site. Had large gush of blood vaginally just prior to pain onset. +chills. Febrile at ER with slight tachycardia Hospital Course Hospital Course: has responded well to rocephin. Is ready for discharge. Incision much improved. Physical Exam - Physical Exam Vital Signs: Temp Pulse Resp BP Pulse Ox 98.3 F 64 15 140/91 H 100 03/15/18 08:41 03/15/18 08:41 03/15/18 08:41 03/15/18 08:41 03/15/18 08:41 Intake & Output 03/14/18 03/15/18 03/16/18 06:59 06:59 06:59 Intake Total 1925 Balance 1925 General appearance: PRESENT: no acute distress, cooperative Head exam: PRESENT: atraumatic GI/Abdominal exam: PRESENT: soft - nontender. Erythema resolved. incision well healed and intact Result Laboratory Results: 03/15/18 06:30 03/15/18 06:30 WBC 6.4 RBC 3.30 L Hgb 10.4 L Hct 29.1 L MCV 88 MCH 31.4 MCHC 35.6 RDW 13.2 Plt Count 209 Plan Discharge Plan: continue with home PO antibiotics. Pt. has been disengaged from my office therefore will follow up with her PCM Dr. Sarabia for incision assessment in 1 week. Time Spent: Less than 30 Minutes
[2018-03-15 11:30] VITALS: BP 138/78
== END 2018-03-15 13:05 | disposition home or self-care (01) | DRG 776 ==
LOC: ER 12:28 → INTOOBSV 17:55 → EH 17:55 → OBSVTOIN 17:55 → 2S 18:50
PROVIDERS: ADMIT Obstetrics & Gynecology; ATTEND Obstetrics & Gynecology
DX: O86.0 Infection of obstetric surgical wound (principal); L03.311 Cellulitis of abdominal wall; R00.0 Tachycardia, unspecified
CPT/HCPCS: 36415; 80048; 81001; 83605; 85025; 85027; 87040; 99284; J0696; J2405; J3490; J7120

== ENCOUNTER 2018-04-09 01:43 | Emergency (ER) | payer MEDICAID ==
[2018-04-09 08:21] VITALS: BP 105/66
--- NOTE | 2018-04-09 08:54 | ER Document Report ---
ED General - General Chief Complaint: Mouth Problem Stated Complaint: MOUTH PAIN Time Seen by Provider: 04/09/18 06:42 TRAVEL OUTSIDE OF THE [place] IN LAST 30 DAYS: No - HPI Patient complains to provider of: Sore on the tongue Notes: Patient coming in for a painful sore on the right margin of her tongue. States ongoing for the last few days. Patient states difficult to eat and drink because of pain. Denies any fevers chills nausea vomiting diarrhea states that she has siblings at home - Related Data Allergies/Adverse Reactions: No Known Drug Allergies Allergy (Verified 03/13/18 12:28) Past Medical History - Social History Smoking Status: Unknown if Ever Smoked Family History: Reviewed & Not Pertinent Patient has suicidal ideation: No Patient has homicidal ideation: No Neurological Medical History: Reports: Hx Migraine Renal/ Medical History: Reports: Hx Ovarian Cysts. Denies: Hx Peritoneal Dialysis Musculoskeltal Medical History: Denies Hx Arthritis Past Surgical History: Reports: Hx Section - x3, Hx Cholecystectomy, Hx Tubal Ligation. Denies: Hx Hysterectomy - Immunizations Immunizations up to date: Yes Hx Diphtheria, Pertussis, Tetanus Vaccination: Yes Review of Systems - Review of Systems Constitutional: No symptoms reported EENT: Other - Sore on tongue Cardiovascular: No symptoms reported Respiratory: No symptoms reported Gastrointestinal: No symptoms reported Genitourinary: No symptoms reported Female Genitourinary: No symptoms reported Musculoskeletal: No symptoms reported Skin: No symptoms reported Hematologic/Lymphatic: No symptoms reported Neurological/Psychological: No symptoms reported Physical Exam - Vital signs Vitals: Temp Pulse Resp BP Pulse Ox 98.6 F 103 H 16 120/86 H 98 04/09/18 02:08 04/09/18 02:08 04/09/18 02:08 04/09/18 02:08 04/09/18 02:08 Interpretation: Normal - General General appearance: Appears well, Alert - HEENT Head: Normocephalic, Atraumatic Eyes: Normal Pupils: PERRL Notes: ulcer on the right margin of the tongue - Respiratory Respiratory status: No respiratory distress Chest status: Nontender Breath sounds: Normal Chest palpation: Normal - Cardiovascular Rhythm: Regular Heart sounds: Normal auscultation Murmur: No - Abdominal Inspection: Normal Distension: No distension Bowel sounds: Normal Tenderness: Nontender Organomegaly: No organomegaly - Back Back: Normal, Nontender - Extremities General upper extremity: Normal inspection, Nontender, Normal color, Normal ROM , Normal temperature General lower extremity: Normal inspection, Nontender, Normal color, Normal ROM , Normal temperature, Normal weight bearing. No: Zainab's sign - Neurological Neuro grossly intact: Yes Cognition: Normal Orientation: AAOx4 Ethel Coma Scale Eye Opening: Spontaneous Thomas Coma Scale Verbal: Oriented Ethel Coma Scale Motor: Obeys Commands Thomas Coma Scale Total: 15 Speech: Normal Motor strength normal: LUE, RUE, LLE, RLE Sensory: Normal - Psychological Associated symptoms: Normal affect, Normal mood - Skin Skin Temperature: Warm Skin Moisture: Dry Skin Color: Normal Course - Re-evaluation Re-evalutation: 04/09/18 14:42 Patient evaluation consistent with aphthalmus ulcer on the tongue. Patient was given Magic mouthwash for pain control patient will be discharged home. - Vital Signs Vital signs: Temp Pulse Resp BP Pulse Ox 98.4 F 80 18 105/66 98 04/09/18 08:18 04/09/18 08:18 04/09/18 08:18 04/09/18 08:18 04/09/18 08:18 Discharge - Discharge Clinical Impression: Oral ulcer Condition: Good Instructions: Mouth Sores ([facility]) Additional Instructions: Your evaluation shows signs of sores within. Would recommend follow-up with your primary care physician return to ER symptoms worsen. You can use the Magic mouthwash as prescribed to aid in pain control. Prescriptions: Nystatin/Dexameth/Diphen [Magic Mouthwash ([facility] Formula) Susp] 5 ml PO QID #120 ml Referrals: ALO SARABIA MD [Primary Care Provider] - Follow up in 3-5 days
== END 2018-04-09 09:05 | disposition home or self-care (01) ==
LOC: ER 01:43
DX: K12.1 Other forms of stomatitis (principal); K08.89 Other specified disorders of teeth and supporting structures
CPT/HCPCS: 99282

== ENCOUNTER 2018-10-25 15:22 | Emergency (ER) | payer MEDICAID ==
[2018-10-25] MEDS ORDERED: NORMAL SALINE 1000 ML 1,000 ML IV ONE ×2 (16:08→19:00)
--- NOTE | 2018-10-25 16:09 | ER Document Report ---
ED Medical Screen (RME) - General Chief Complaint: Cold Symptoms Stated Complaint: POSSIBLE ALLERGIC REACTION Time Seen by Provider: 10/25/18 16:00 Mode of Arrival: Ambulatory Information source: Patient Notes: Patient presents complaining of cough for the past week with a fever yesterday of 102. Today patient states that she developed a rash and is concerned that she may be having allergic reaction to amoxicillin that was she was placed on 2 days ago to treat otitis media. Patient complains of chest pain and is tachycardic at this time. Patient denies any use of control as she has had a tubal ligation. Patient denies any history of PE or DVT in the past. She denies any nausea vomiting or diarrhea I have greeted and performed a rapid initial assessment of this patient. A comprehensive ED assessment and evaluation of the patient, analysis of test results and completion of the medical decision making process will be conducted by additional ED providers. TRAVEL OUTSIDE OF THE [place] IN LAST 30 DAYS: No - Related Data Allergies/Adverse Reactions: No Known Drug Allergies Allergy (Verified 10/25/18 15:30) Past Medical History Neurological Medical History: Reports: Hx Migraine Renal/ Medical History: Reports: Hx Ovarian Cysts. Denies: Hx Peritoneal Dialysis Musculoskeltal Medical History: Denies Hx Arthritis Past Surgical History: Reports: Hx Section - x3, Hx Cholecystectomy, Hx Tubal Ligation. Denies: Hx Hysterectomy - Immunizations Immunizations up to date: Yes Hx Diphtheria, Pertussis, Tetanus Vaccination: Yes Physical Exam - Vital signs Vitals: Temp Pulse Resp BP Pulse Ox 99.9 F 145 H 16 120/87 H 99 10/25/18 15:50 10/25/18 15:50 10/25/18 15:50 10/25/18 15:50 10/25/18 15:50 - Cardiovascular Rhythm: Tachycardia Heart sounds: S1 appreciated, S2 appreciated Course - Vital Signs Vital signs: Temp Pulse Resp BP Pulse Ox 99.9 F 145 H 16 120/87 H 99 10/25/18 15:50 10/25/18 15:50 10/25/18 15:50 10/25/18 15:50 10/25/18 15:50 Doctor's Discharge - Discharge Referrals: ALO SARABIA MD [Primary Care Provider] - Follow up as needed
--- NOTE | 2018-10-25 16:38 | RADIOLOGY REPORT (SQ) ---
EXAM DESCRIPTION: CHEST 2 VIEWS COMPLETED DATE/TIME: 10/25/2018 4:29 pm REASON FOR STUDY: cp COMPARISON: 03/24/2016. EXAM PARAMETERS: NUMBER OF VIEWS: two views TECHNIQUE: Digital Frontal and Lateral radiographic views of the chest acquired. RADIATION DOSE: NA LIMITATIONS: none FINDINGS: LUNGS AND PLEURA: No opacities, masses or pneumothorax. No pleural effusion. MEDIASTINUM AND HILAR STRUCTURES: No masses or contour abnormalities. HEART AND VASCULAR STRUCTURES: Heart normal size. No evidence for failure. BONES: No acute findings. HARDWARE: None in the chest. OTHER: No other significant finding. IMPRESSION: NO ACUTE RADIOGRAPHIC FINDING IN THE CHEST. TECHNICAL DOCUMENTATION: JOB ID: [id number] [employer]- All Rights Reserved Reading location - IP/workstation name: [email or web address]
[2018-10-25 17:15] LABS: ABSOLUTE LYMPHOCYTES (AUTO) 0.7 10^3/uL (0.5-4.7); ABSOLUTE MONOCYTES (AUTO) 0.7 10^3/uL (0.1-1.4); ABSOLUTE NEUT (AUTO) 3.1 10^3/uL (1.7-8.2); BASOPHILS % (AUTO) 0.7 % (0-2); EOSINOPHILS % (AUTO) 0.9 % (0-6); HEMATOCRIT 40.7 % (36.0-47.0); HEMOGLOBIN 14.3 g/dL (12.0-15.5); LYMPHOCYTES % (AUTO) 15.1 % (13-45); MEAN CORPUSCULAR HGB CONC 35.2 g/dL (32.0-36.0); MEAN CORPUSCULAR VOLUME 85 fl (80-97); MONOCYTES % (AUTO) 15.6 % (3-13); PLATELET COUNT 208 10^3/uL (150-450); RED BLOOD COUNT 4.77 10^6/uL (3.72-5.28); SEGMENTED NEUTROPHILS % (AUTO) 67.7 % (42-78); TOTAL CELLS COUNTED % (AUTO) 100 %; WHITE BLOOD COUNT 4.6 10^3/uL (4.0-10.5)
[2018-10-25 17:21] LABS: APPEARANCE,URINE SLIGHTLY-CLOUDY; BILIRUBIN,URINE NEGATIVE (NEGATIVE); COLOR,URINE YELLOW; GLUCOSE, URINE NEGATIVE (NEGATIVE); KETONES,URINE NEGATIVE (NEGATIVE); LEUKOCYTE ESTERASE,URINE NEGATIVE (NEGATIVE); NITRITE,URINE NEGATIVE (NEGATIVE); PROTEIN,URINE 30 mg/dL (NEGATIVE); URINE SPECIFIC GRAVITY 1.026; UROBILINOGEN,URINE NEGATIVE mg/dL (<2.0)
[2018-10-25 17:32] LABS: ALANINE AMINOTRANSFERASE 17 U/L (9-52); ALBUMIN 4.6 g/dL (3.5-5.0); ALKALINE PHOSPHATASE 87 U/L (38-126); ANION GAP 9 (5-19); ASPARTATE AMINO TRANSFERASE 19 U/L (14-36); BILIRUBIN,DIRECT 0.2 mg/dL (0.0-0.4); BILIRUBIN,TOTAL 0.4 mg/dL (0.2-1.3); BLOOD UREA NITROGEN 10 mg/dL (7-20); CALCIUM 9.3 mg/dL (8.4-10.2); CARBON DIOXIDE 26 mmol/L (22-30); CHLORIDE 104 mmol/L (98-107); GLUCOSE 97 mg/dL (75-110); POTASSIUM 3.8 mmol/L (3.6-5.0); SODIUM 139.2 mmol/L (137-145); TOTAL PROTEIN 7.6 g/dL (6.3-8.2)
--- NOTE | 2018-10-25 19:02 | ER Document Report ---
ED General - General Mode of Arrival: Ambulatory TRAVEL OUTSIDE OF THE [place] IN LAST 30 DAYS: No <DONNIE JJ - Last Filed: 10/25/18 22:41> <QUINCY THOMAS - Last Filed: 10/26/18 06:39> - General Chief Complaint: Cold Symptoms Stated Complaint: POSSIBLE ALLERGIC REACTION Time Seen by Provider: 10/25/18 16:00 Notes: Patient is a 22 year old female presenting to the emergency department complaining of multiple symptoms including chest pain, shortness of breath, cough, fever, rhinorrhea and a rash. Patient states she presented to her PCP, CURTIS Clark, a few days ago and was diagnosed with an ear infection and prescribed amoxicillin. Patient states yesterday,she developed a red, itchy rash on her bilateral hips and lower extremities further described as bumps the size of her thumb and proceeded to take Benadryl. She states during this time she also developed some shortness of breath and discontinued taking the amoxicilin yesterday. She states she today the rash is completely resolved although she continues to have cold symptoms as well as chest pain, described as a tightness exacerbated with coughing and some trouble breathing. She states she had a fever greater than 100.4 yesterday as well. She denies any vomiting, diarrhea, dy suria, hematuria or frequent urination. She also complains of chronic diffuse back pain. (ODNNIE JJ) - Related Data Allergies/Adverse Reactions: No Known Drug Allergies Allergy (Verified 10/25/18 15:30) Past Medical History - General Information source: Patient - Social History Smoking Status: Never Smoker Chew tobacco use (# tins/day): No Frequency of alcohol use: None Drug Abuse: None Family History: Reviewed & Not Pertinent Patient has suicidal ideation: No Patient has homicidal ideation: No Neurological Medical History: Reports: Hx Migraine Renal/ Medical History: Reports: Hx Ovarian Cysts Past Surgical History: Reports: Hx Section - x3, Hx Cholecystectomy, Hx Tubal Ligation - Immunizations Immunizations up to date: Yes Hx Diphtheria, Pertussis, Tetanus Vaccination: Yes <DONNIE JJ - Last Filed: 10/25/18 22:41> Review of Systems - Review of Systems Constitutional: See HPI, Fever EENT: See HPI Cardiovascular: See HPI, Chest pain Respiratory: See HPI, Cough, Short of breath Gastrointestinal: No symptoms reported Genitourinary: No symptoms reported Female Genitourinary: No symptoms reported Musculoskeletal: See HPI Skin: See HPI, Rash Hematologic/Lymphatic: No symptoms reported Neurological/Psychological: No symptoms reported -: Yes All other systems reviewed and negative <АННАDONNIE WHITLEY - Last Filed: 10/25/18 22:41> Physical Exam <АННАDONNIE WHITLEY - Last Filed: 10/25/18 22:41> - Vital signs Vitals: Temp Pulse Resp BP Pulse Ox 99.9 F 145 H 16 120/87 H 99 10/25/18 15:50 10/25/18 15:50 10/25/18 15:50 10/25/18 15:50 10/25/18 15:50 - Notes Notes: GENERAL: Alert, interacts well. No acute distress. HEAD: Normocephalic, atraumatic. EYES: Pupils equal, round, and reactive to light. Extraocular movements intact. ENT: Oral mucosa moist, tongue midline. TM's bulging bilaterally, clear fluid bilaterally. NECK: Full range of motion. Supple. Trachea midline. LUNGS: Clear to auscultation bilaterally, no wheezes, rales, or rhonchi. No respiratory distress. HEART: Tachycardic. No murmurs, gallops, or rubs. ABDOMEN: Soft, non-tender. Non-distended. Bowel sounds present in all 4 quadrants. EXTREMITIES: Moves all 4 extremities spontaneously. NEUROLOGICAL: Alert and oriented x3. Normal speech. PSYCH: Normal affect, normal mood. SKIN: Warm, dry, normal turgor. No rashes or lesions noted. BACK: Right CVA tenderness to percussion. (АННАGERDAYOLANDA) Course - Laboratory Result Diagrams: 10/25/18 16:58 10/25/18 16:58 <DONNIE JJ - Last Filed: 10/25/18 22:41> - Laboratory Result Diagrams: 10/25/18 16:58 10/25/18 16:58 <QUINCY THOMAS - Last Filed: 10/26/18 06:39> - Re-evaluation Re-evalutation: 10/25/18 22:18 CBC unremarkable, CMP grossly unremarkable, urinalysis shows small blood but no signs of infection, mono test is negative, chest x-ray revealed no acute process. I was concerned that the patient was persistently tachycardic particularly with exertion even after having IV fluid, d-dimer was performed and was found to be positive at 1.138, CT angiogram of the chest was ordered to look for pulmonary embolism, this was negative for PE but it did show groundglass opacity in the right lower lobe suspicious for pneumonia. This is consistent with patient's symptoms of chest pain, cough and shortness of breath and also explains the tachycardia. Patient will be changed from amoxicillin to azithromycin and discharged to home. (QUINCY THOMAS) - Vital Signs Vital signs: Temp Pulse Resp BP Pulse Ox 99.9 F 76 16 139/79 H 98 10/25/18 15:50 10/25/18 22:44 10/25/18 22:44 10/25/18 22:44 10/25/18 22:44 - Laboratory Laboratory results interpreted by me: 10/25/18 10/25/18 10/25/18 16:58 16:58 16:58 Monocytes % 15.6 H D-Dimer 1.13 H Urine Protein 30 H Urine Blood SMALL H - EKG Interpretation by Me Additional EKG results interpreted by me: 10/25/18 22:22 EKG shows sinus tachycardia at a rate of 112, normal axis, normal intervals, no ST segment elevations or depressions, there are T wave inversions in lead III which are unchanged from prior EKG per my interpretation. (QUINCY THOMAS) Discharge <DONNIE JJ - Last Filed: 10/25/18 22:41> <QUINCY THOMAS - Last Filed: 10/26/18 06:39> - Discharge Clinical Impression: Right lower lobe pneumonia Qualifiers: Pneumonia type: due to unspecified organism Qualified Code(s): J18.1 - Lobar pneumonia, unspecified organism Condition: Stable Disposition: HOME, SELF-CARE Additional Instructions: Pneumonia Your examination indicates that you have pneumonia. This is an infection of the lung tissue, usually caused by bacteria or a virus. Symptoms include cough, fever, shaking chills, chest pain, shortness of breath, and coughing up bloody sputum. Treatment for bacterial pneumonia includes rest, antibiotics for 10 to 14 days, increasing your clear liquid intake, a cool mist humidifier at your bedside, and fever medication. Often, a repeat chest X-ray is performed in a few weeks--even if you feel better--to ascertain whether the infection has completely resolved and no underlying lung problem is present. You should call the physician if you develop persistent vomiting, high fever that does not respond to fever medication, increasing shortness of breath, confusion, or lethargy. Also, failure to improve within two to three days is an indication for re-examination. The Tessalon Perles will help to just decrease your cough and the Robaxin should help to decrease the pain across her back. Prescriptions: Azithromycin [Zithromax 250 mg Tablet] 250 mg PO DAILY #4 tablet Benzonatate [Tessalon Perles 100 mg Capsule] 100 mg PO ASDIR PRN #40 capsule PRN Reason: Methocarbamol [Robaxin 750 mg Tablet] 750 mg PO ASDIR PRN #40 tablet PRN Reason: Referrals: ALO SARABIA MD [Primary Care Provider] - Follow up as needed Scribe Attestation: 10/26/18 06:39 I personally performed the services described in the documentation, reviewed and edited the documentation which was dictated to the scribe in my presence, and it accurately records my words and actions. (QUINCY THOMAS) Scribe Documentation - Scribe Written by Jakub:: Jakub De León, 10/25/2017 19:05 acting as scribe for :: Sima <DONNIE JJ - Last Filed: 10/25/18 22:41>
--- NOTE | 2018-10-25 21:39 | RADIOLOGY REPORT (SQ) ---
CT CHEST ANGIOGRAPHY WITHOUT THEN WITH IV CONTRAST HISTORY: Shortness of breath. COMPARISON: 03/24/2016 TECHNIQUE: CT angiogram of the chest with IV contrast. 3-D MIP images were obtained in coronal and sagittal reconstructions. This exam was performed according to our departmental dose-optimization program, which includes automated exposure control, adjustment of the mA and/or kV according to patient size and/or use of iterative reconstruction technique. FINDINGS: No acute pulmonary embolism is seen in the main or segmental branches. The thyroid gland is unremarkable. No mediastinal or axillary adenopathy. The heart size is normal without pericardial effusion. There is a very small amount of groundglass opacity in the right lower lobe. No pleural effusions or pneumothorax. The visualized upper abdomen is unremarkable. No acute osseous findings are seen. IMPRESSION: 1. No acute pulmonary embolism. 2. There is small groundglass opacity in the right lower lobe which may represent infection.
[2018-10-25] MEDS ORDERED: BENZONATATE 100 MG CAPSULE PO ONE (22:20)
[2018-10-25] MEDS ORDERED: AZITHROMYCIN 250 MG TABLET PO ONE (22:20)
[2018-10-25] MEDS ORDERED: METHOCARBAMOL 750 MG TABLET PO ONE (22:20)
[2018-10-25 22:45] VITALS: BP 139/79
--- NOTE | 2018-10-26 09:24 | EKG REPORT ---
SEVERITY:- OTHERWISE NORMAL ECG - SINUS TACHYCARDIA : Confirmed by: Zoltan Guillermo 26-Oct-2018 09:22:55
== END 2018-10-25 22:44 | disposition home or self-care (01) ==
LOC: ER 15:22
DX: J18.1 Lobar pneumonia, unspecified organism (principal); R07.9 Chest pain, unspecified; R06.02 Shortness of breath; R05 Cough; R50.9 Fever, unspecified; Z90.49 Acquired absence of other specified parts of digestive tract; Z98.51 Tubal ligation status
CPT/HCPCS: 93005; 99284; 96360; 96361; 36415; 87040; 87086; 85025; 81025; 86308; 80053; 81001; 85379; 71046; 71275; 93010; J3490 ×2; Q0144; J7030

== ENCOUNTER 2019-07-29 18:51 | Emergency (ER) | payer SELFPAY ==
[2019-07-29] MEDS ORDERED: NORMAL SALINE 1000 ML 1,000 ML IV ONE (19:13)
[2019-07-29] MEDS ORDERED: ONDANSETRON HCL INJ/PF 4 MG/2 ML SDV IV ONE (19:13)
[2019-07-29 20:11] LABS: ABSOLUTE LYMPHOCYTES (AUTO) 1.1 10^3/uL (0.5-4.7); ABSOLUTE MONOCYTES (AUTO) 0.6 10^3/uL (0.1-1.4); ABSOLUTE NEUT (AUTO) 4.5 10^3/uL (1.7-8.2); BASOPHILS % (AUTO) 0.2 % (0-2); EOSINOPHILS % (AUTO) 0.8 % (0-6); HEMATOCRIT 37.6 % (36.0-47.0); HEMOGLOBIN 13.2 g/dL (12.0-15.5); MEAN CORPUSCULAR HEMOGLOBIN 30.4 pg (27.0-33.4); MEAN CORPUSCULAR HGB CONC 35.1 g/dL (32.0-36.0); MEAN CORPUSCULAR VOLUME 87 fl (80-97); MONOCYTES % (AUTO) 9.9 % (3-13); PLATELET COUNT 198 10^3/uL (150-450); RED BLOOD COUNT 4.34 10^6/uL (3.72-5.28); RED CELL DISTRIBUTION WIDTH 13.4 % (11.5-14.0); SEGMENTED NEUTROPHILS % (AUTO) 71.1 % (42-78); TOTAL CELLS COUNTED % (AUTO) 100 %; WHITE BLOOD COUNT 6.3 10^3/uL (4.0-10.5)
[2019-07-29 20:21] LABS: APPEARANCE,URINE CLOUDY; BILIRUBIN,URINE SMALL (NEGATIVE); GLUCOSE, URINE NEGATIVE (NEGATIVE); KETONES,URINE TRACE mg/dL (NEGATIVE); PROTEIN,URINE 30 mg/dL (NEGATIVE); URINE SPECIFIC GRAVITY 1.029
[2019-07-29 20:23] LABS: COLOR,URINE DARK YELLOW
[2019-07-29 20:25] LABS: ALBUMIN 4.4 g/dL (3.5-5.0); ALKALINE PHOSPHATASE 69 U/L (38-126); ANION GAP 10 (5-19); ASPARTATE AMINO TRANSFERASE 18 U/L (14-36); BLOOD UREA NITROGEN 7 mg/dL (7-20); CARBON DIOXIDE 26 mmol/L (22-30); CHLORIDE 104 mmol/L (98-107); GLUCOSE 91 mg/dL (75-110); POTASSIUM 3.6 mmol/L (3.6-5.0); TOTAL PROTEIN 7.4 g/dL (6.3-8.2)
--- NOTE | 2019-07-29 21:31 | ER Document Report ---
ED Medical Screen (RME) - General Chief Complaint: Abdominal Pain Stated Complaint: VOMITING Time Seen by Provider: 07/29/19 19:11 TRAVEL OUTSIDE OF THE [place] IN LAST 30 DAYS: No - HPI Notes: 07/29/19 21:30 Patient is a 23-year-old female who presents complaining of nausea, vomiting, occasional diarrhea. Denies fever or chest pain. I have treated and performed a rapid initial assessment of this patient. A comprehensive ED assessment and evaluation of the patient, analysis of test results and completion of medical decision making process will be conducted by additional ED providers. PHYSICAL EXAMINATION: GENERAL: Well-appearing, well-nourished and in no acute distress. A&Ox4. Answers questions appropriately. LUNGS: Breath sounds clear to auscultation bilaterally and equal. No wheezes rales or rhonchi. HEART: Regular rate and rhythm without murmurs, rubs, gallops. ABDOMEN: Soft, nondistended abdomen. No guarding, no rebound. Normal bowel sounds present. No CVA tenderness bilaterally. grossly noontender (cannot elicit thorough abd exam w/o bed, however). - Related Data Allergies/Adverse Reactions: No Known Drug Allergies Allergy (Verified 07/29/19 19:09) Past Medical History - Social History Chew tobacco use (# tins/day): No Frequency of alcohol use: Occasional Drug Abuse: None Neurological Medical History: Reports: Hx Migraine Renal/ Medical History: Reports: Hx Ovarian Cysts. Denies: Hx Peritoneal Dialysis Musculoskeltal Medical History: Denies Hx Arthritis Past Surgical History: Reports: Hx Section - x3, Hx Cholecystectomy, Hx Tubal Ligation. Denies: Hx Hysterectomy - Immunizations Immunizations up to date: Yes Hx Diphtheria, Pertussis, Tetanus Vaccination: Yes Physical Exam - Vital signs Vitals: Temp Pulse Resp BP Pulse Ox 98.3 F 94 16 128/69 H 100 07/29/19 19:09 07/29/19 19:09 07/29/19 19:09 07/29/19 19:09 07/29/19 19:09 Course - Vital Signs Vital signs: Temp Pulse Resp BP Pulse Ox 98.3 F 94 16 128/69 H 100 07/29/19 19:09 07/29/19 19:09 07/29/19 19:09 07/29/19 19:09 07/29/19 19:09 - Laboratory Result Diagrams: 07/29/19 19:35 07/29/19 19:35 Laboratory results interpreted by me: 07/29/19 19:26 Urine Protein 30 H Urine Ketones TRACE H Urine Bilirubin SMALL H Urine Urobilinogen 4.0 H Leukocyte Esterase Rfl MODERATE H
[2019-07-29] MEDS ORDERED: ONDANSETRON ODT 4 MG TAB (6 TAB/ER DISP) PO PRN (21:44)
--- NOTE | 2019-07-29 21:44 | ER Document Report ---
ED GI/ - General Chief Complaint: Abdominal Pain Stated Complaint: VOMITING Time Seen by Provider: 07/29/19 19:11 Notes: Patient is a 23-year-old female presents to the emergency department with nausea and vomiting for the last 24 hours. Patient states she had some lower abdominal cramping. States she vomited over 30 times today. Denies any blood in her emesis. Patient's denying any diarrhea or fevers. Patient's denying any dysuria or vaginal discharge. States the lower abdominal pain was cramping in nature. States she is supposed to be starting her menstrual cycle "soon." Patient has been treated with fluids and Zofran upon my assessment. She is denying all complaints. She states now she feels hungry. She is denying any a bdominal pain or cramping. Patient has been able to drink water with no further episodes of vomiting. Patient has no medical problems, takes no daily medications, has no allergies. TRAVEL OUTSIDE OF THE [place] IN LAST 30 DAYS: No - Related Data Allergies/Adverse Reactions: No Known Drug Allergies Allergy (Verified 07/29/19 19:09) Past Medical History - General Information source: Patient - Social History Smoking Status: Never Smoker Chew tobacco use (# tins/day): No Frequency of alcohol use: Occasional Drug Abuse: None Family History: Reviewed & Not Pertinent Patient has suicidal ideation: No Patient has homicidal ideation: No Neurological Medical History: Reports: Hx Migraine Renal/ Medical History: Reports: Hx Ovarian Cysts. Denies: Hx Peritoneal Dialysis Musculoskeletal Medical History: Denies Hx Arthritis Past Surgical History: Reports: Hx Section - x3, Hx Cholecystectomy, Hx Tubal Ligation. Denies: Hx Hysterectomy - Immunizations Immunizations up to date: Yes Hx Diphtheria, Pertussis, Tetanus Vaccination: Yes Review of Systems - Review of Systems Constitutional: denies: Fever EENT: No symptoms reported Cardiovascular: No symptoms reported Respiratory: No symptoms reported Gastrointestinal: See HPI Genitourinary: See HPI Female Genitourinary: See HPI Musculoskeletal: No symptoms reported Skin: No symptoms reported Hematologic/Lymphatic: No symptoms reported Neurological/Psychological: No symptoms reported Physical Exam - Vital signs Vitals: Temp Pulse Resp BP Pulse Ox 98.3 F 94 16 128/69 H 100 07/29/19 19:09 07/29/19 19:09 07/29/19 19:09 07/29/19 19:09 07/29/19 19:09 - Notes Notes: GENERAL: Alert, interacts well. No acute distress. HEAD: Normocephalic, atraumatic. EYES: Pupils equal, round, and reactive to light. Extraocular movements intact. ENT: Oral mucosa moist, tongue midline. NECK: Full range of motion. Supple. Trachea midline. LUNGS: Clear to auscultation bilaterally, no wheezes, rales, or rhonchi. No respiratory distress. HEART: Regular rate and rhythm. No murmur ABDOMEN: Soft, non-tender. Non-distended. Bowel sounds present in all 4 quadrants. EXTREMITIES: Moves all 4 extremities spontaneously. No edema, normal radial and dorsalis pedis pulses bilaterally. No cyanosis. BACK: no cervical, thoracic, lumbar midline tenderness. No saddle anesthesia, normal distal neurovascular exam. No CVA tenderness noted bilaterally. NEUROLOGICAL: Alert and oriented x3. Normal speech. cranial nerves II through XII grossly intact. PSYCH: Normal affect, normal mood. SKIN: Warm, dry, normal turgor. No rashes or lesions noted. Course - Re-evaluation Re-evalutation: 07/29/19 21:41 Laboratory 07/29/19 07/29/19 07/29/19 19:26 19:35 19:35 WBC 6.3 RBC 4.34 Hgb 13.2 Hct 37.6 MCV 87 MCH 30.4 MCHC 35.1 RDW 13.4 Plt Count 198 Lymph % (Auto) 18.0 [place] % (Auto) 9.9 Eos % (Auto) 0.8 Baso % (Auto) 0.2 Absolute Neuts (auto) 4.5 Absolute Lymphs (auto) 1.1 Absolute Monos (auto) 0.6 Absolute Eos (auto) 0.0 Absolute Basos (auto) 0.0 Seg Neutrophils % 71.1 Sodium 139.5 Potassium 3.6 Chloride 104 Carbon Dioxide 26 Anion Gap 10 BUN 7 Creatinine 0.55 Est GFR ( Amer) > 60 Est GFR (MDRD) Non-Af > 60 Glucose 91 Calcium 9.0 Total Bilirubin 1.0 Direct Bilirubin 0.0 Neonat Total Bilirubin Not Reportable Neonat Direct Bilirubin Not Reportable Neonat Indirect Bili Not Reportable AST 18 ALT 13 Alkaline Phosphatase 69 Total Protein 7.4 Albumin 4.4 Lipase 43.8 Urine Color DARK YELLOW Urine Appearance CLOUDY Urine pH 5.0 Ur Specific [place] 1.029 Urine Protein 30 H Urine Glucose (UA) NEGATIVE Urine Ketones TRACE H Urine Blood NEGATIVE Urine Nitrite (Reflex) NEGATIVE Urine Bilirubin SMALL H Urine Urobilinogen 4.0 H Leukocyte Esterase Rfl MODERATE H Urine RBC (Auto) 4 Urine WBC (Reflex) 14 Squamous Epi Cells Auto 34 Urine Mucus (Auto) MANY Urine Ascorbic Acid NEGATIVE Urine HCG, Qual NEGATIVE Patient's labs are unremarkable, patient's urine does appear to be a dirty catch. Sent for culture.Pt voices she does feel better and has been able to PO fluids with no vomiting or nausea., Discussed use of Zofran and staying well- hydrated. Discussed close follow-up with primary care provider. Patient stable for discharge. - Vital Signs Vital signs: Temp Pulse Resp BP Pulse Ox 97.6 F 86 16 113/68 98 07/29/19 22:05 07/29/19 22:05 07/29/19 22:05 07/29/19 22:05 07/29/19 22:05 - Laboratory Result Diagrams: 07/29/19 19:35 07/29/19 19:35 Laboratory results interpreted by me: 07/29/19 19:26 Urine Protein 30 H Urine Ketones TRACE H Urine Bilirubin SMALL H Urine Urobilinogen 4.0 H Leukocyte Esterase Rfl MODERATE H Discharge - Discharge Clinical Impression: Nausea & vomiting Qualifiers: Vomiting type: unspecified Vomiting Intractability: non-intractable Qualified Code(s): R11.2 - Nausea with vomiting, unspecified Condition: Stable Disposition: HOME, SELF-CARE Instructions: Antinausea Medication ([facility]), Intravenous (IV) Fluids ([facility]), Vomiting ([facility]) Additional Instructions: As we discussed you have been seen and treated in the emergency department for nausea, vomiting. Please make sure you are using nausea medication only as needed. Please also make sure you are staying well-hydrated. Please follow-up with your primary care provider in the next 12 to 24 hours. Return to the emergency room for any concerns. Prescriptions: Ondansetron [Zofran Odt 4 mg Tablet] 2 tab PO Q6 PRN #16 tab.rapdis PRN Reason: For Nausea/Vomiting Forms: Return to Work
[2019-07-29 22:07] VITALS: BP 113/68
== END 2019-07-29 22:00 | disposition home or self-care (01) ==
LOC: ER 18:51
DX: R10.30 Lower abdominal pain, unspecified (principal); R11.2 Nausea with vomiting, unspecified; Z90.49 Acquired absence of other specified parts of digestive tract; Z98.51 Tubal ligation status
CPT/HCPCS: 99284; 96374; 36415; 87086; 83690; 85025; 81025; 80053; 81001; J2405; J7030

== ENCOUNTER 2019-07-31 12:25 | Emergency (ER) | payer SELFPAY ==
[2019-07-31] MEDS ORDERED: ONDANSETRON HCL INJ/PF 4 MG/2 ML SDV IV ONE (12:40)
[2019-07-31] MEDS ORDERED: NORMAL SALINE 1000 ML 1,000 ML IV ONE (12:40)
--- NOTE | 2019-07-31 12:42 | ER Document Report ---
ED Medical Screen (RME) - General Chief Complaint: Nausea/Vomiting/Diarrhea Stated Complaint: NAUSEA,DIARRHEA Time Seen by Provider: 07/31/19 12:35 Notes: Patient is a 23-year-old female who presents to the emergency department with a chief complaint of nausea and diarrhea. She was seen 2 days ago here in the emergency department, but had to leave before all her tests were done. Patient states that she started vomiting 2 days ago and this morning she started to have diarrhea. Patient feels nauseous at this time, but stopped vomiting yesterday. Last menstrual cycle was end of June. Past surgical history of 3 C- sections and cholecystectomy. Exam: Soft, nontender abdomen. Normoactive bowel sounds. I have greeted and performed a rapid initial assessment of this patient. A comprehensive ED assessment and evaluation of the patient, analysis of test results and completion of medical decision making process will be conducted by an additional ED providers. TRAVEL OUTSIDE OF THE [place] IN LAST 30 DAYS: No - Related Data Allergies/Adverse Reactions: No Known Drug Allergies Allergy (Verified 07/31/19 12:36) Past Medical History - Social History Chew tobacco use (# tins/day): No Frequency of alcohol use: None Drug Abuse: None Neurological Medical History: Reports: Hx Migraine Renal/ Medical History: Reports: Hx Ovarian Cysts. Denies: Hx Peritoneal Dialysis Musculoskeltal Medical History: Denies Hx Arthritis Past Surgical History: Reports: Hx Section - x3, Hx Cholecystectomy, Hx Tubal Ligation. Denies: Hx Hysterectomy - Immunizations Immunizations up to date: Yes Hx Diphtheria, Pertussis, Tetanus Vaccination: Yes Physical Exam - Vital signs Vitals: Temp Pulse Resp BP Pulse Ox 98.3 F 87 16 126/78 H 100 07/31/19 12:32 07/31/19 12:32 07/31/19 12:32 07/31/19 12:32 07/31/19 12:32 Course - Vital Signs Vital signs: Temp Pulse Resp BP Pulse Ox 98.3 F 87 16 126/78 H 100 07/31/19 12:32 07/31/19 12:32 07/31/19 12:32 07/31/19 12:32 07/31/19 12:32
[2019-07-31 13:28] LABS: ABSOLUTE EOSINOPHILS # (AUTO) 0.2 10^3/uL (0.0-0.6); ABSOLUTE LYMPHOCYTES (AUTO) 1.3 10^3/uL (0.5-4.7); ABSOLUTE MONOCYTES (AUTO) 0.7 10^3/uL (0.1-1.4); BASOPHILS % (AUTO) 0.4 % (0-2); EOSINOPHILS % (AUTO) 2.7 % (0-6); HEMOGLOBIN 13.9 g/dL (12.0-15.5); LYMPHOCYTES % (AUTO) 17.5 % (13-45); MEAN CORPUSCULAR HEMOGLOBIN 30.1 pg (27.0-33.4); MEAN CORPUSCULAR HGB CONC 34.8 g/dL (32.0-36.0); MEAN CORPUSCULAR VOLUME 87 fl (80-97); MONOCYTES % (AUTO) 10.2 % (3-13); PLATELET COUNT 204 10^3/uL (150-450); RED BLOOD COUNT 4.63 10^6/uL (3.72-5.28); RED CELL DISTRIBUTION WIDTH 13.2 % (11.5-14.0); SEGMENTED NEUTROPHILS % (AUTO) 69.2 % (42-78); TOTAL CELLS COUNTED % (AUTO) 100 %; WHITE BLOOD COUNT 7.2 10^3/uL (4.0-10.5)
[2019-07-31 13:36] LABS: AMORPHOUS SEDIMENT,URINE TRACE /HPF; APPEARANCE,URINE SLIGHTLY-CLOUDY; BILIRUBIN,URINE NEGATIVE (NEGATIVE); COLOR,URINE YELLOW; GLUCOSE, URINE NEGATIVE (NEGATIVE); KETONES,URINE NEGATIVE (NEGATIVE); LEUKOCYTE ESTERASE,URINE TRACE (NEGATIVE); NITRITE,URINE NEGATIVE (NEGATIVE); PROTEIN,URINE NEGATIVE (NEGATIVE); URINE SPECIFIC GRAVITY 1.025
[2019-07-31] MEDS ORDERED: MORPHINE SULFATE 10 MG/ML INJ IV ONE (13:42)
[2019-07-31 13:49] LABS: ALBUMIN 4.6 g/dL (3.5-5.0); ALKALINE PHOSPHATASE 81 U/L (38-126); ANION GAP 11 (5-19); ASPARTATE AMINO TRANSFERASE 20 U/L (14-36); BILIRUBIN,DIRECT 0.1 mg/dL (0.0-0.4); BILIRUBIN,TOTAL 0.5 mg/dL (0.2-1.3); BLOOD UREA NITROGEN 5 mg/dL (7-20); CALCIUM 9.2 mg/dL (8.4-10.2); CARBON DIOXIDE 25 mmol/L (22-30); CHLORIDE 109 mmol/L (98-107); GLUCOSE 89 mg/dL (75-110); POTASSIUM 3.8 mmol/L (3.6-5.0); TOTAL PROTEIN 7.5 g/dL (6.3-8.2)
--- NOTE | 2019-07-31 15:06 | RADIOLOGY REPORT (SQ) ---
EXAM DESCRIPTION: CT ABD/PELVIS WITH IV ONLY COMPLETED DATE/TIME: 07/31/2019 2:41 pm REASON FOR STUDY: rlq pain COMPARISON: None. TECHNIQUE: CT scan of the abdomen and pelvis performed using helical scanning technique with dynamic intravenous contrast injection. No oral contrast. Images reviewed with lung, soft tissue, and bone windows. Reconstructed coronal and sagittal MPR images reviewed. Delayed images for evaluation of the urinary system also acquired. All images stored on PACS. All CT scanners at this facility use dose modulation, iterative reconstruction, and/or weight based d osing when appropriate to reduce radiation dose to as low as reasonably achievable (ALARA). [facility]: Dose Right [facility]: CareDose [facility]: Dose Right [facility]: Teradose 4D [facility]: [employer] CONTRAST TYPE AND DOSE: 100 cc Omnipaque 350 RENAL FUNCTION: None required. The patient is less than 50 years old. RADIATION DOSE: Total Exam DLP: 1989.59 mGy LIMITATIONS: None. FINDINGS: LOWER CHEST: Stable small subcentimeter pulmonary nodules. Interval resolution of the fo fanny ground-glass opacites in the right lower lobe. LIVER: Mild nonobstructive intrahepatic biliary dilatation in a post cholecystectomy patient. The he patic and portal veins are patent. SPLEEN: Normal size. No focal lesions. PANCREAS: No masses. No significant calcifications. No adjacent inflammation or peripancreatic fluid collections. Pancreatic duct not dilated. GALLBLADDER: Prior cholecystectomy. ADRENAL GLANDS: No significant masses or asymmetry. RIGHT KIDNEY AND URETER: No solid masses. No significant calcifications. No hydronephrosis or hyd roureter. LEFT KIDNEY AND URETER: No solid masses. No significant calcifications. No hydronephrosis or hydr oureter. AORTA AND VESSELS: No aneurysm. No dissection. Renal arteries, SMA, celiac without stenosis. RETROPERITONEUM: No retroperitoneal adenopathy, hemorrhage or masses. BOWEL AND PERITONEAL CAVITY: Several borderline mesenteric lymph nodes with some of the largest ibrahima uring 1.0 cm in short axis diameter. Several small to upper limits of normal aorta caval and retrope ritoneal small lymph nodes. no free fluid. APPENDIX: Normal. PELVIS: Prominent bilateral pelvic vasculature. These findings may be on the basis of pelvic vascul ar congestion syndrome. Very small amount of free fluid in the cul-de-sac, may be on a physiologic b asis. No free fluid. Normal bladder. ABDOMINAL WALL: Very tiny fat containing umbilical hernia. BONES: No significant or acute findings. OTHER: No other significant finding. IMPRESSION: 1. NO ACUTE FINDING IN THE ABDOMEN OR PELVIS. 2. Prior cholecystectomy. 3. Borderline mesenteric lymph nodes and small to sligh upper limits of normal retroperitoneal lymph nodes. Considerations for these findings include possible inflammatory/infectious etiologies. A fo llow-up CT examination in three months suggested for re-evaluation. 4. Prominent pelvic vasculature bilaterally. These findings may be on the basis of pelvic vascular congestion syndrome. 5. Stable appearing small subcentimeter pulmonary nodules since the previous CT chest examination da pablo 10/25/2018. The focal ground-glass opacities in the right lower lobe have resolved. TECHNICAL DOCUMENTATION: JOB ID: [id number] Quality ID # [id number]: Final reports with documentation of one or more dose reduction techniques (e.g., Au tomated exposure control, adjustment of the mA and/or kV according to patient size, use of iterative reconstruction technique) 2010 [employer]- All Rights Reserved Reading location - IP/workstation name: [email or web address]
--- NOTE | 2019-07-31 15:21 | ER Document Report ---
ED General - General Chief Complaint: Nausea/Vomiting/Diarrhea Stated Complaint: NAUSEA,DIARRHEA Time Seen by Provider: 07/31/19 12:35 Mode of Arrival: Ambulatory Information source: Patient TRAVEL OUTSIDE OF THE [place] IN LAST 30 DAYS: No - HPI Notes: Patient presents complaining of abdominal pain. It is diffuse. It is crampy. Nothing makes better or worse. It is located throughout her abdomen but greatest in the right side of the abdomen. No vaginal symptoms. No significant dysuria urgency or frequency. No diarrhea. She has had a decreased appetite. States she has had some nausea and vomiting. Some subjective fever chills and malaise. No rashes. No abdominal trauma. It does radiate from one side to the other. It is moderate in intensity. - Related Data Allergies/Adverse Reactions: No Known Drug Allergies Allergy (Verified 07/31/19 12:36) Past Medical History - General Information source: Patient - Social History Smoking Status: Never Smoker Chew tobacco use (# tins/day): No Frequency of alcohol use: None Drug Abuse: None Family History: Reviewed & Not Pertinent Patient has suicidal ideation: No Patient has homicidal ideation: No Neurological Medical History: Reports: Hx Migraine Renal/ Medical History: Reports: Hx Ovarian Cysts. Denies: Hx Peritoneal Dialysis Musculoskeletal Medical History: Denies Hx Arthritis Past Surgical History: Reports: Hx Section - x3, Hx Cholecystectomy, Hx Tubal Ligation. Denies: Hx Hysterectomy - Immunizations Immunizations up to date: Yes Hx Diphtheria, Pertussis, Tetanus Vaccination: Yes Review of Systems - Review of Systems Constitutional: Malaise, Weakness Cardiovascular: denies: Chest pain, Palpitations Respiratory: denies: Cough, Short of breath Gastrointestinal: Abdominal pain, Nausea -: Yes All other systems reviewed and negative Physical Exam - Vital signs Vitals: Temp Pulse Resp BP Pulse Ox 98.3 F 87 16 126/78 H 100 07/31/19 12:32 07/31/19 12:32 07/31/19 12:32 07/31/19 12:32 07/31/19 12:32 Interpretation: Normal - General General appearance: Appears well, Alert - HEENT Head: Normocephalic, Atraumatic Eyes: Normal Pupils: PERRL - Respiratory Respiratory status: No respiratory distress Chest status: Nontender Breath sounds: Normal Chest palpation: Normal - Cardiovascular Rhythm: Regular Heart sounds: Normal auscultation Murmur: No - Abdominal Inspection: Normal Distension: No distension Bowel sounds: Normal Tenderness: Nontender Organomegaly: No organomegaly - Back Back: Normal, Nontender - Extremities General upper extremity: Normal inspection, Nontender, Normal color, Normal ROM, Normal temperature General lower extremity: Normal inspection, Nontender, Normal color, Normal ROM, Normal temperature, Normal weight bearing. No: Zainab's sign - Neurological Neuro grossly intact: Yes Cognition: Normal Orientation: AAOx4 [place] Coma Scale Eye Opening: Spontaneous [place] Coma Scale Verbal: Oriented [place] Coma Scale Motor: Obeys Commands [place] Coma Scale Total: 15 Speech: Normal Motor strength normal: LUE, RUE, LLE, RLE Sensory: Normal - Psychological Associated symptoms: Normal affect, Normal mood - Skin Skin Temperature: Warm Skin Moisture: Dry Skin Color: Normal Course - Re-evaluation Re-evalutation: 07/31/19 15:20 Patient presents with mild diffuse abdominal pain. There is no significant abdominal tenderness on palpation. CT scan shows findings consistent with possible mesenteric adenitis. Patient will be discharged home with pain medication and instructions to follow-up with her primary as well as have a repeat CT of her abdomen. - Vital Signs Vital signs: Temp Pulse Resp BP Pulse Ox 98.3 F 87 16 126/78 H 100 07/31/19 12:32 07/31/19 12:32 07/31/19 12:32 07/31/19 12:32 07/31/19 12:32 - Laboratory Result Diagrams: 07/31/19 13:05 07/31/19 13:05 Laboratory results interpreted by me: 07/31/19 07/31/19 13:05 13:05 Chloride 109 H BUN 5 L Urine Urobilinogen 4.0 H Ur Leukocyte Esterase TRACE H - Diagnostic Test Radiology reviewed: Image reviewed, Reports reviewed Discharge - Discharge Clinical Impression: Mesenteric adenitis Condition: Stable Disposition: HOME, SELF-CARE Instructions: Abdominal Pain ([facility]) Additional Instructions: Please call your family doctor today to arrange follow-up. You need to have a repeat CT scan of your abdomen in 3 months. Prescriptions: Tramadol HCl [Ultram] 50 mg PO Q6 PRN 3 Days #12 tablet PRN Reason:
[2019-07-31 16:32] VITALS: BP 120/81
== END 2019-07-31 16:35 | disposition home or self-care (01) ==
LOC: ER 12:25
DX: I88.0 Nonspecific mesenteric lymphadenitis (principal); R11.2 Nausea with vomiting, unspecified; R19.7 Diarrhea, unspecified; R10.84 Generalized abdominal pain; R53.1 Weakness; Z90.49 Acquired absence of other specified parts of digestive tract; Z98.51 Tubal ligation status
CPT/HCPCS: 36415; 83690; 84703; 85025; 80053; 81001; 74177; J2270; J2405; J7030; 96361; 96374; 96375; 99284

== ENCOUNTER 2019-08-02 19:56 | Emergency (ER) | payer SELFPAY ==
--- NOTE | 2019-08-02 21:38 | ER Document Report ---
ED Medical Screen (RME) - General Chief Complaint: Abdominal Pain Stated Complaint: ABDOMINAL PAIN Time Seen by Provider: 08/02/19 21:34 Mode of Arrival: Ambulatory Information source: Patient Notes: 23-year-old female presented to ED for abdominal pain. She was seen on Tuesday and that diagnosed with mesentery adenitis. She states she is here today because she continued to have pain in the lower abdomen and it feels like when she had a hernia in the past. She states she does not remember then repairing the hernia or at any time. She states she has had a and gallbladder removed. She states she is mostly here because she would like to have a ultrasound to make sure she does not have a hernia again. I have greeted and performed a rapid initial assessment of this patient. A comprehensive ED assessment and evaluation of the patient, analysis of test results and completion of medical decision making process will be conducted by an additional ED providers. TRAVEL OUTSIDE OF THE [place] IN LAST 30 DAYS: No - Related Data Allergies/Adverse Reactions: No Known Drug Allergies Allergy (Verified 07/31/19 12:36) Past Medical History Neurological Medical History: Reports: Hx Migraine Renal/ Medical History: Reports: Hx Ovarian Cysts. Denies: Hx Peritoneal Dialysis Musculoskeltal Medical History: Denies Hx Arthritis Past Surgical History: Reports: Hx Section - x3, Hx Cholecystectomy, Hx Tubal Ligation. Denies: Hx Hysterectomy - Immunizations Immunizations up to date: Yes Hx Diphtheria, Pertussis, Tetanus Vaccination: Yes Physical Exam - Vital signs Vitals: Temp Pulse Resp BP Pulse Ox 98.2 F 93 18 111/91 H 99 08/02/19 20:50 08/02/19 20:50 08/02/19 20:50 08/02/19 20:50 08/02/19 20:50 Course - Vital Signs Vital signs: Temp Pulse Resp BP Pulse Ox 98.2 F 93 18 111/91 H 99 08/02/19 20:50 08/02/19 20:50 08/02/19 20:50 08/02/19 20:50 08/02/19 20:50
--- NOTE | 2019-08-02 22:11 | RADIOLOGY REPORT (SQ) ---
EXAM DESCRIPTION: US ABDOMEN LIMITED COMPLETED DATE/TME: 08/02/2019 21:38 CLINICAL HISTORY: 23 years, Female, left lower quad abd pain COMPARISON: None. TECHNIQUE: Axial 2-D grayscale images of the left lower quadrant were obtained. LIMITATIONS: None. FINDINGS: Focused sonographic evaluation of the left lower quadrant was performed. No suspicious soft tissue anomalies are clearly appreciated. Only peristalsing bowel was identified. IMPRESSION: No suspicious sonographic abnormality. copyright 2010 [employer]- All Rights Reserved
[2019-08-03] VITALS: BP 139/82
== END 2019-08-03 00:01 | disposition home or self-care (01) ==
LOC: ER 19:56
DX: R10.32 Left lower quadrant pain (principal); Z90.49 Acquired absence of other specified parts of digestive tract; Z98.51 Tubal ligation status
CPT/HCPCS: 76705; 99284

== ENCOUNTER 2019-10-03 18:10 | Emergency (ER) | payer SELFPAY ==
[2019-10-03 18:20] VITALS: BP 132/85
[2019-10-03 19:40] LABS: A TYPE INFLUENZA AG NEGATIVE (NEGATIVE); B INFLUENZA AG NEGATIVE (NEGATIVE)
--- NOTE | 2019-10-03 20:25 | ER Document Report ---
HPI - HPI Time Seen by Provider: 10/03/19 18:43 Pain Level: 3 Context: Patient is a 23-year-old female who presents to the emergency department with a chief complaint of a cough.Her symptoms started yesterday. She also has complaints of bilateral ear pain. Denies any fever, body aches, chills, nausea, abdominal pain, vomiting. Denies diarrhea. - ROS Systems Reviewed and Negative: Yes All other systems reviewed and negative - CONSTITUTIONAL Constitutional: DENIES: Fever, Chills - EENT EENT: REPORTS: Ear Pain - NEURO Neurology: REPORTS: Headache. DENIES: Weakness, Vision blurred - RESPIRATORY Respiratory: REPORTS: Coughing - GASTROINTESTINAL Gastrointestinal: DENIES: Abdominal Pain, Black / Bloody Stools - URINARY Urinary: DENIES: Dysuria, Urgency, Frequency - REPRODUCTIVE Reproductive: DENIES: : Past Medical History - General Information source: Patient - Social History Smoking Status: Never Smoker Family History: Reviewed & Not Pertinent Patient has suicidal ideation: No Patient has homicidal ideation: No Neurological Medical History: Reports: Hx Migraine Renal/ Medical History: Reports: Hx Ovarian Cysts. Denies: Hx Peritoneal Dialysis GI Medical History: Reports: Hx Gastroesophageal Reflux Disease, Hx Colonoscopy Musculoskeletal Medical History: Denies Hx Arthritis Psychiatric Medical History: Reports: Hx Attention Deficit Hyperactivity Disorder Past Surgical History: Reports: Hx Section - x3, Hx Cholecystectomy, Hx Tubal Ligation. Denies: Hx Hysterectomy - Immunizations Immunizations up to date: Yes Hx Diphtheria, Pertussis, Tetanus Vaccination: Yes Vertical Provider Document - CONSTITUTIONAL Agree With Documented VS: Yes Exam Limitations: No Limitations General Appearance: No Apparent Distress - INFECTION CONTROL TRAVEL OUTSIDE OF THE [place] IN LAST 30 DAYS: No - HEENT HEENT: Atraumatic, Normocephalic, PERRLA, Pharyngeal Erythema. negative: Pharyngeal Exudate, Pharyngeal Tenderness, Tympanic Membrane Red, Tympanic Membrane Bulging - NECK Neck: Normal Inspection. negative: Lymphadenopathy-Left, Lymphadenopathy-Right - RESPIRATORY Respiratory: No Respiratory Distress - CARDIOVASCULAR Cardiovascular: Regular Rhythm, No Murmur, Tachycardia Pulses: Normal: Radial - MUSCULOSKELETAL/EXTREMETIES Musculoskeletal/Extremeties: FROM - NEURO Level of Consciousness: Awake, Alert, Appropriate Motor/Sensory: No Motor Deficit, No Sensory Deficit - DERM Integumentary: Warm, Dry, No Rash Course - Re-evaluation Re-evalutation: 10/03/19 Presentation is most consistent with a viral upper respiratory infection. Patient is overall well appearance, vitals within normal limits, well-hydrated. Patient denies any headache, neck pain, and has no evidence of meningismus on examination. Lungs are clear bilaterally. No evidence of respiratory distress. Based on clinical exam and history, I do not suspect an acute pneumonia, meningitis, strep pharyngitis, or an acute encephalitis. Influnza tests are negative. Will discharge patient with return precautions and followup recommendations. They are in agreement this plan have verbalized understanding return precautions. - Vital Signs Vital signs: Temp Pulse Resp BP Pulse Ox 97.9 F 104 H 20 132/85 H 96 10/03/19 18:13 10/03/19 18:13 10/03/19 18:13 10/03/19 18:13 10/03/19 18:13 Discharge - Discharge Clinical Impression: Upper respiratory infection, viral Condition: Stable Disposition: HOME, SELF-CARE Additional Instructions: You were seen today in the emergency department for a cough and a runny nose. Your flu test was negative. Your symptoms are most consistent with an upper respiratory viral infection. Please take acetaminophen 1000 mg and ibuprofen 600 mg every 6 hours as needed for any body aches or fever. You have been given cetirizine, medication to help with your runny nose. Take 1 tablet every day while you have symptoms. You have also been given Flonase, medication to help with the inflammation in your nose. Place 1 spray to each nostril twice a day. If you develop a fever greater than 100.4 F while on ibuprofen and acetaminophen, develop shortness of breath, difficulty breathing, or any symptoms that are worrisome to you, please return to the emergency department. Prescriptions: Cetirizine HCl [All Day Allergy] 10 mg PO DAILY #30 tablet Fluticasone Propionate [Flonase Nasal [place] 50 Mcg/[place] 16 gm] 2 sprays NASL DAILY #1 inhaler
== END 2019-10-03 20:35 | disposition home or self-care (01) ==
LOC: ER 18:10
DX: J06.9 Acute upper respiratory infection, unspecified (principal); B97.89 Other viral agents as the cause of diseases classified elsewhere; R05 Cough; H92.03 Otalgia, bilateral; R51 Headache
CPT/HCPCS: 87804; 99283

== ENCOUNTER 2019-10-17 09:25 | Emergency (ER) | payer SELFPAY ==
[2019-10-17] MEDS ORDERED: IBUPROFEN 800 MG TABLET PO ONE (09:56)
[2019-10-17] MEDS ORDERED: DEXAMETHASONE SOD PHOSPHATE INJ 4 MG/1 ML VIAL IM ONE (09:56)
--- NOTE | 2019-10-17 10:00 | ER Document Report ---
HPI - HPI Patient complains to provider of: sore throat Time Seen by Provider: 10/17/19 09:53 Onset: Other - 2 days Onset/Duration: Persistent Quality of pain: Other - sore Pain Level: 4 Context: 23-year-old female relatively healthy presents emergency department with complaints of sore throat for the past 2 days. Reports her kids tested negative for strep. Reports she felt hot unsure of temperature, did not take Tylenol Motrin this morning. Also complains of headache congestion. Denies vomiting diarrhea. Reports it hurts to swallow. Associated Symptoms: None Exacerbated by: Denies Relieved by: Denies Similar symptoms previously: No Recently seen / treated by doctor: No - REPRODUCTIVE LMP: Reproductive: DENIES: : Past Medical History - General Information source: Patient Last Menstrual Period: 10/05/19 - Social History Smoking Status: Never Smoker Chew tobacco use (# tins/day): No Frequency of alcohol use: None Drug Abuse: None Lives with: Family Family History: Reviewed & Not Pertinent Patient has suicidal ideation: No Patient has homicidal ideation: No Neurological Medical History: Reports: Hx Migraine Renal/ Medical History: Reports: Hx Ovarian Cysts. Denies: Hx Peritoneal Dialysis GI Medical History: Reports: Hx Gastroesophageal Reflux Disease, Hx Colonoscopy Musculoskeletal Medical History: Denies Hx Arthritis Psychiatric Medical History: Reports: Hx Attention Deficit Hyperactivity Disorder Past Surgical History: Reports: Hx Section - x3, Hx Cholecystectomy, Hx Tubal Ligation. Denies: Hx Hysterectomy - Immunizations Immunizations up to date: Yes Hx Diphtheria, Pertussis, Tetanus Vaccination: Yes Vertical Provider Document - CONSTITUTIONAL Agree With Documented VS: Yes Exam Limitations: No Limitations General Appearance: WD/WN, No Apparent Distress - INFECTION CONTROL TRAVEL OUTSIDE OF THE [place] IN LAST 30 DAYS: No - HEENT HEENT: Atraumatic, Normocephalic, Pharyngeal Erythema - Tonsillar hypertrophy good airway clear voice no trismus opens mouth wide no Elvin's. negative: Conjuctival Injection, Pharyngeal Exudate, Tympanic Membrane Red - NECK Neck: Normal Inspection, Supple. negative: Lymphadenopathy-Left, Lymphadenopathy-Right - RESPIRATORY Respiratory: Breath Sounds Normal, No Respiratory Distress - CARDIOVASCULAR Cardiovascular: Regular Rate, Regular Rhythm - MUSCULOSKELETAL/EXTREMETIES Musculoskeletal/Extremeties: ENOC [place] - NEURO Level of Consciousness: Awake, Alert, Appropriate Motor/Sensory: No Motor Deficit - DERM Integumentary: Warm, Dry, No Rash Course - Re-evaluation Re-evalutation: 10/17/19 13:49 Patient presents with sore throat for the past 2 days. Her strep test was positive. Patient received a Decadron injection for tonsillar hypertrophy. She was instructed on antibiotics. She was also instructed to return for trouble swallowing concerns. She verbalized understanding to all instructions. She has a clear voice opens mouth wide no peritonsillar abscess. - Vital Signs Vital signs: Temp Pulse Resp BP Pulse Ox 99.0 F 101 H 16 108/67 98 10/17/19 09:41 10/17/19 09:41 10/17/19 09:41 10/17/19 09:41 10/17/19 09:41 Discharge - Discharge Clinical Impression: Sore throat, Strep throat Condition: Stable Disposition: HOME, SELF-CARE Instructions: Penicillin V K ([facility]), Sore Throat ([facility]), Steroid Medication Injection, Strep Throat ([facility]) Additional Instructions: *You have been evaluated for a sore throat, strep *Take medication as prescribed *Gargle with warm salt water and utilize throat lozenges for comfort *Change toothbrush after two days of antibiotics *Do not let anyone drink/eat after you *Good hand washing *Follow-up with a primary care provider within 1 week for recheck *Return to ED for worsening condition change, needs Prescriptions: Penicillin V Potassium [Penicillin Vk 500 mg Tablet] 500 mg PO BID #20 tablet
[2019-10-17 11:19] VITALS: BP 116/79
== END 2019-10-17 11:18 | disposition home or self-care (01) ==
LOC: ER 09:25
DX: J02.0 Streptococcal pharyngitis (principal); R51 Headache; R09.81 Nasal congestion; R13.10 Dysphagia, unspecified
CPT/HCPCS: 99283; 96372; 87880; J1100

== ENCOUNTER 2019-10-23 08:43 | Emergency (ER) | payer SELFPAY ==
[2019-10-23 08:50] VITALS: BP 116/80
[2019-10-23] MEDS ORDERED: DEXAMETHASONE SOD PHOS INJ 10 MG/1 ML VIAL IM ONE (09:31)
--- NOTE | 2019-10-23 09:34 | ER Document Report ---
HPI - HPI Time Seen by Provider: 10/23/19 09:29 Pain Level: 5 Notes: Patient is a 23-year-old female no significant past medical history aside from being diagnosed with strep 6 days ago and placed on penicillin presents complaining of a continued sore throat throughout this time. Patient states that she did have improvement with the Decadron, but that wore off. She is able to eat and drink without difficulty otherwise. She is urinating normally. Denies drug allergies. No other concerns or complaints. Denies any headache, fever, neck pain, URI, chest pain, palpitations, syncope, cough, shortness of breath, wheeze, dyspnea, abdominal pain, nausea/vomiting/diarrhea, urinary retention, dysuria, hematuria, or rash. - ROS Systems Reviewed and Negative: Yes All other systems reviewed and negative - REPRODUCTIVE LMP: end september Reproductive: DENIES: : Past Medical History - Social History Smoking Status: Never Smoker Chew tobacco use (# tins/day): No Frequency of alcohol use: None Drug Abuse: None Family History: Reviewed & Not Pertinent Patient has suicidal ideation: No Patient has homicidal ideation: No Neurological Medical History: Reports: Hx Migraine Renal/ Medical History: Reports: Hx Ovarian Cysts. Denies: Hx Peritoneal Dialysis GI Medical History: Reports: Hx Gastroesophageal Reflux Disease, Hx Colonoscopy Musculoskeletal Medical History: Denies Hx Arthritis Psychiatric Medical History: Reports: Hx Attention Deficit Hyperactivity Disorder Past Surgical History: Reports: Hx Section - x3, Hx Cholecystectomy, Hx Tubal Ligation. Denies: Hx Hysterectomy - Immunizations Immunizations up to date: Yes Hx Diphtheria, Pertussis, Tetanus Vaccination: Yes Vertical Provider Document - CONSTITUTIONAL Agree With Documented VS: Yes Notes: PHYSICAL EXAMINATION: GENERAL: Well-appearing, well-nourished and in no acute distress. A&Ox4. Answers questions appropriately. Moves comfortably w/o notable distress HEAD: Atraumatic, normocephalic. EYES: Pupils equal round and reactive to light, extraocular movements intact, sclera anicteric, conjunctiva are normal. ENT: Nares patent and with clear discharge. oropharynx mild erythema without exudates. 2+ tonsilar hypertrophy with mild erythema no exudate. No palatine shift. Uvula midline. No tongue protrusion. No drooling, hoarseness, or airway compromise. Moist mucous membranes. No sinus tenderness. NECK: Normal range of motion, supple without lymphadenopathy. No rigidity/meningismus. LUNGS: Breath sounds clear to auscultation bilaterally and equal. No wheezes rales or rhonchi. No retractions HEART: Regular rate and rhythm without murmurs, rubs, gallops. NEUROLOGICAL: Normal speech, normal gait. PSYCH: Normal mood, normal affect. SKIN: Warm, Dry, normal turgor, no rashes or lesions noted. - INFECTION CONTROL TRAVEL OUTSIDE OF THE [place] IN LAST 30 DAYS: No Course - Re-evaluation Re-evalutation: 10/23/19 09:33 Patient is an afebrile, well-hydrated, 23-year-old female who presents with strep pharyngitis that was diagnosed 6 days ago here in the emergency department. The rapid strep at that time was positive. Vitals are acceptable without significant tachycardia, tachypnea, hypoxia. PE is otherwise unremarkable. Patient is nontoxic-appearing and is tolerating p.o. without difficulty. Low suspicion for any meningitis, sepsis, peritonsillar/pharyngeal abscess, respiratory compromise, Elvin's, or other emergent systemic condition at this time. Patient is aware this condition can change from initial presentation and she needs to monitor symptoms closely. I will switch her to Augmentin and another shot of Decadron was given today. Conservative measures otherwise for symptoms. Recheck with your PCM in 2-3 days. Return to the ED with any worsening/concerning symptoms otherwise as reviewed in discharge. Patient is in agreement. - Vital Signs Vital signs: Temp Pulse Resp BP Pulse Ox 97.7 F 110 H 16 116/80 99 10/23/19 08:49 10/23/19 08:49 10/23/19 08:49 10/23/19 08:49 10/23/19 08:49 Discharge - Discharge Clinical Impression: Strep pharyngitis Condition: Stable Disposition: HOME, SELF-CARE Instructions: Strep Throat ([facility]) Additional Instructions: Maintain adequate fluid intake Take meds as directed Salt water gargles, throat sprays, mouthwash rinse, peroxide gargles tylenol/ibuprofen as needed New toothbrush tomorrow evening over the counter cold medication as needed for symptoms F/u: with your PCM in 2-3 days for a recheck Consider consult with ENT for ongoing/worsening symptoms Return to the ED with any fever, worsening pain, chest pain, neck pain/stiffness, shortness of breath, cough, drooling, trouble swallowing/breathing, abdominal pain, n/v/d, rash, or worsening/concerning symptoms otherwise. Prescriptions: Amox Tr/Potassium Clavulanate [Augmentin 875-125 Tablet] 1 tab PO BID 10 Days #20 tablet Referrals: JESU VINCENT DO [ASSOCIATE] - Follow up as needed
== END 2019-10-23 09:39 | disposition home or self-care (01) ==
LOC: ER 08:43
DX: J02.0 Streptococcal pharyngitis (principal)
CPT/HCPCS: 99282; 96372; J1100

== ENCOUNTER → 2020-01-07 | Outpatient (CLI) | payer BC ==
[2020-01-07 13:43] LABS: ABSOLUTE EOSINOPHILS # (AUTO) 0.1 10^3/uL (0.0-0.6); ABSOLUTE LYMPHOCYTES (AUTO) 1.6 10^3/uL (0.5-4.7); ABSOLUTE MONOCYTES (AUTO) 0.7 10^3/uL (0.1-1.4); ABSOLUTE NEUT (AUTO) 6.9 10^3/uL (1.7-8.2); BASOPHILS % (AUTO) 0.4 % (0-2); EOSINOPHILS % (AUTO) 1.3 % (0-6); HEMATOCRIT 38.8 % (36.0-47.0); HEMOGLOBIN 13.7 g/dL (12.0-15.5); LYMPHOCYTES % (AUTO) 16.9 % (13-45); MEAN CORPUSCULAR HEMOGLOBIN 30.1 pg (27.0-33.4); MEAN CORPUSCULAR HGB CONC 35.3 g/dL (32.0-36.0); MEAN CORPUSCULAR VOLUME 85 fl (80-97); MONOCYTES % (AUTO) 7.6 % (3-13); PLATELET COUNT 236 10^3/uL (150-450); RED BLOOD COUNT 4.54 10^6/uL (3.72-5.28); RED CELL DISTRIBUTION WIDTH 12.5 % (11.5-14.0); SEGMENTED NEUTROPHILS % (AUTO) 73.8 % (42-78); TOTAL CELLS COUNTED % (AUTO) 100 %; WHITE BLOOD COUNT 9.4 10^3/uL (4.0-10.5)
[2020-01-07 13:54] LABS: A TYPE INFLUENZA AG NEGATIVE (NEGATIVE); B INFLUENZA AG NEGATIVE (NEGATIVE)
[2020-01-07 14:34] LABS: ALBUMIN 4.5 g/dL (3.5-5.0); ALKALINE PHOSPHATASE 84 U/L (38-126); ANION GAP 11 (5-19); ASPARTATE AMINO TRANSFERASE 19 U/L (14-36); BILIRUBIN,TOTAL 0.9 mg/dL (0.2-1.3); BLOOD UREA NITROGEN 10 mg/dL (7-20); CALCIUM 9.5 mg/dL (8.4-10.2); CARBON DIOXIDE 25 mmol/L (22-30); CHLORIDE 103 mmol/L (98-107); GLUCOSE 93 mg/dL (75-110); POTASSIUM 3.8 mmol/L (3.6-5.0); TOTAL PROTEIN 7.6 g/dL (6.3-8.2)
--- NOTE | 2020-01-07 14:34 | RADIOLOGY REPORT (SQ) ---
EXAM DESCRIPTION: CHEST PA/LATERAL IMAGES COMPLETED DATE/TIME: 01/07/2020 1:34 pm REASON FOR STUDY: COUGH COMPARISON: 10/25/2018 EXAM PARAMETERS: NUMBER OF VIEWS: two views TECHNIQUE: Digital Frontal and Lateral radiographic views of the chest acquired. RADIATION DOSE: NA LIMITATIONS: none FINDINGS: LUNGS AND PLEURA: No opacities, masses or pneumothorax. No pleural effusion. MEDIASTINUM AND HILAR STRUCTURES: No masses or contour abnormalities. HEART AND VASCULAR STRUCTURES: Heart normal size. No evidence for failure. BONES: No acute findings. HARDWARE: None in the chest. OTHER: No other significant finding. IMPRESSION: NO SIGNIFICANT RADIOGRAPHIC FINDING IN THE CHEST. TECHNICAL DOCUMENTATION: JOB ID: [id number] 2010 [employer]- All Rights Reserved Reading location - IP/workstation name: [email or web address]
== END ==
LOC: OD 13:00
PROVIDERS: ATTEND Physician Assistant
DX: R05 Cough (principal); R11.0 Nausea
CPT/HCPCS: 71046; 80053; 83690; 85025; 87804

== ENCOUNTER → 2020-02-11 | Outpatient (CLI) | payer BC ==
[2020-02-11 16:51] LABS: ABSOLUTE EOSINOPHILS # (AUTO) 0.1 10^3/uL (0.0-0.6); ABSOLUTE LYMPHOCYTES (AUTO) 1.8 10^3/uL (0.5-4.7); ABSOLUTE MONOCYTES (AUTO) 0.5 10^3/uL (0.1-1.4); BASOPHILS % (AUTO) 0.9 % (0-2); EOSINOPHILS % (AUTO) 1.3 % (0-6); HEMATOCRIT 35.6 % (36.0-47.0); LYMPHOCYTES % (AUTO) 32.5 % (13-45); MEAN CORPUSCULAR HEMOGLOBIN 31.2 pg (27.0-33.4); MEAN CORPUSCULAR HGB CONC 36.6 g/dL (32.0-36.0); MEAN CORPUSCULAR VOLUME 85 fl (80-97); MONOCYTES % (AUTO) 9.1 % (3-13); PLATELET COUNT 220 10^3/uL (150-450); RED BLOOD COUNT 4.19 10^6/uL (3.72-5.28); RED CELL DISTRIBUTION WIDTH 12.7 % (11.5-14.0); SEGMENTED NEUTROPHILS % (AUTO) 56.2 % (42-78); TOTAL CELLS COUNTED % (AUTO) 100 %; WHITE BLOOD COUNT 5.4 10^3/uL (4.0-10.5)
[2020-02-11 16:56] LABS: APPEARANCE,URINE SLIGHTLY-CLOUDY; BILIRUBIN,URINE SMALL (NEGATIVE); COLOR,URINE AMBER; GLUCOSE, URINE NEGATIVE (NEGATIVE); KETONES,URINE NEGATIVE (NEGATIVE); LEUKOCYTE ESTERASE,URINE NEGATIVE (NEGATIVE); NITRITE,URINE NEGATIVE (NEGATIVE); PROTEIN,URINE 30 mg/dL (NEGATIVE); URINE SPECIFIC GRAVITY 1.034
[2020-02-11 17:09] LABS: ALBUMIN 4.2 g/dL (3.5-5.0); ALKALINE PHOSPHATASE 61 U/L (38-126); ANION GAP 10 (5-19); ASPARTATE AMINO TRANSFERASE 19 U/L (14-36); BILIRUBIN,DIRECT 0.1 mg/dL (0.0-0.4); BILIRUBIN,TOTAL 0.6 mg/dL (0.2-1.3); BLOOD UREA NITROGEN 8 mg/dL (7-20); CALCIUM 9.2 mg/dL (8.4-10.2); CARBON DIOXIDE 23 mmol/L (22-30); CHLORIDE 106 mmol/L (98-107); GLUCOSE 124 mg/dL (75-110); POTASSIUM 3.6 mmol/L (3.6-5.0); TOTAL PROTEIN 6.8 g/dL (6.3-8.2)
== END ==
LOC: OD 15:41
PROVIDERS: ATTEND Physician Assistant
DX: R10.31 Right lower quadrant pain (principal)
CPT/HCPCS: 36415; 80053; 81001; 83690; 85025

== ENCOUNTER 2020-09-09 20:33 | Emergency (ER) | payer BC ==
--- NOTE | 2020-09-09 20:58 | ER Document Report ---
ED Medical Screen (RME) - General Chief Complaint: Chest Pain Stated Complaint: LEFT SIDE PAIN Time Seen by Provider: 09/09/20 20:49 Primary Care Provider: ILEANA URIOSTEGUI PA-C [Primary Care Provider] - Follow up as needed TRAVEL OUTSIDE OF THE [place] IN LAST 30 DAYS: No - HPI Notes: 09/09/20 20:56 24-year-old female to the emergency department with complaints of left-sided c hest pain that is been going on for the past 2 to 3 days. She missed a associated sensation of shortness of breath and lightheadedness. She states that her chest pain gets worse with movement, big deep breath, hiccuping and coughing. She states that she is only coughing every now and then. She denies any fevers or chills. She denies any loss of smell or taste. She denies any possible COVID-19 contacts. She is a non-smoker. She does not use control. She is not been traveling. She denies any leg swelling. On brief medical screening exam patient has tenderness to palpation to the left side of the chest wall and increased pain with a deep breath. I performed a brief medical screening exam on the patient determined that the patient needs further evaluation and management by main side provider. I have placed initial orders to help expedite care. - Related Data Allergies/Adverse Reactions: No Known Drug Allergies Allergy (Verified 09/09/20 20:48) Past Medical History - Social History Frequency of alcohol use: None Drug Abuse: None Neurological Medical History: Reports: Hx Migraine Renal/ Medical History: Reports: Hx Ovarian Cysts. Denies: Hx Peritoneal Dialysis GI Medical History: Reports: Hx Gastroesophageal Reflux Disease, Hx Colonoscopy Musculoskeltal Medical History: Denies Hx Arthritis Psychiatric Medical History: Reports: Hx Attention Deficit Hyperactivity Disorder Past Surgical History: Reports: Hx Section - x3, Hx Cholecystectomy, Hx Tubal Ligation. Denies: Hx Hysterectomy - Immunizations Immunizations up to date: Yes Hx Diphtheria, Pertussis, Tetanus Vaccination: Yes Physical Exam - Vital signs Vitals: Temp Pulse Resp BP Pulse Ox 98.7 F 106 H 20 153/97 H 100 09/09/20 20:40 09/09/20 20:40 09/09/20 20:40 09/09/20 20:40 09/09/20 20:40 Course - Vital Signs Vital signs: Temp Pulse Resp BP Pulse Ox 98.7 F 106 H 20 153/97 H 100 09/09/20 20:40 09/09/20 20:40 09/09/20 20:40 09/09/20 20:40 09/09/20 20:40 Doctor's Discharge - Discharge Referrals: ILEANA URIOSTEGUI PA-C [Primary Care Provider] - Follow up as needed
[2020-09-09 21:47] LABS: ABSOLUTE EOSINOPHILS # (AUTO) 0.1 10^3/uL (0.0-0.6); ABSOLUTE LYMPHOCYTES (AUTO) 1.7 10^3/uL (0.5-4.7); ABSOLUTE NEUT (AUTO) 6.9 10^3/uL (1.7-8.2); BASOPHILS % (AUTO) 0.4 % (0-2); EOSINOPHILS % (AUTO) 0.8 % (0-6); HEMATOCRIT 38.8 % (36.0-47.0); HEMOGLOBIN 13.7 g/dL (12.0-15.5); LYMPHOCYTES % (AUTO) 17.2 % (13-45); MEAN CORPUSCULAR HEMOGLOBIN 30.6 pg (27.0-33.4); MEAN CORPUSCULAR HGB CONC 35.4 g/dL (32.0-36.0); MEAN CORPUSCULAR VOLUME 86 fl (80-97); MONOCYTES % (AUTO) 9.9 % (3-13); PLATELET COUNT 225 10^3/uL (150-450); RED BLOOD COUNT 4.48 10^6/uL (3.72-5.28); RED CELL DISTRIBUTION WIDTH 12.7 % (11.5-14.0); SEGMENTED NEUTROPHILS % (AUTO) 71.7 % (42-78); TOTAL CELLS COUNTED % (AUTO) 100 %; WHITE BLOOD COUNT 9.7 10^3/uL (4.0-10.5)
[2020-09-09 21:51] LABS: APPEARANCE,URINE CLEAR; BILIRUBIN,URINE NEGATIVE (NEGATIVE); COLOR,URINE YELLOW; GLUCOSE, URINE NEGATIVE (NEGATIVE); KETONES,URINE NEGATIVE (NEGATIVE); LEUKOCYTE ESTERASE,URINE TRACE (NEGATIVE); NITRITE,URINE NEGATIVE (NEGATIVE); PROTEIN,URINE NEGATIVE (NEGATIVE); URINE SPECIFIC GRAVITY 1.018; UROBILINOGEN,URINE NEGATIVE mg/dL (<2.0)
--- NOTE | 2020-09-09 21:59 | RADIOLOGY REPORT (SQ) ---
EXAM DESCRIPTION: XR CHEST 2 VIEWS COMPLETED DATE/TME: 09/09/2020 21:24 CLINICAL HISTORY: 24 years, Female, chest pain COMPARISON: Chest x-ray 01/07/2020 TECHNIQUE: PA and lateral views. FINDINGS: Cardiomediastinal silhouette is not enlarged. No acute lung pleural bone abnormalities. IMPRESSION: Unremarkable two-view chest x-ray study copyright 2010 [employer]- All Rights Reserved
--- NOTE | 2020-09-09 22:02 | ER Document Report ---
ED General - General Chief Complaint: Chest Pain Stated Complaint: LEFT SIDE PAIN Time Seen by Provider: 09/09/20 20:49 Primary Care Provider: ILEANA URIOSTEGUI PA-C [Primary Care Provider] - Follow up as needed TRAVEL OUTSIDE OF THE [place] IN LAST 30 DAYS: No - HPI Notes: 24-year-old female presents with left-sided chest pain. Patient states she is having pain from the top of her shoulder all the way down the rib cage. It is constant, has been present for the past 3 to 4 days. Is worsened with movement, taking deep breaths, coughing, touching the area. States she took her stepdad's tramadol without relief of pain, she is also tried Tylenol and ibuprofen, last took 800 mg of ibuprofen this morning. She denies any sort of injury or heavy lifting. She states she has had this pain in the past but has never seen a doctor for it. She is a non-smoker. She reports the cough is here and there and is nonproductive. No fever or chills. No abdominal pain, nausea, vomiting or diarrhea. - Related Data Allergies/Adverse Reactions: No Known Drug Allergies Allergy (Verified 09/09/20 20:48) Past Medical History - General Information source: Patient - Social History Smoking Status: Never Smoker Frequency of alcohol use: None Drug Abuse: None Family History: Reviewed & Not Pertinent Neurological Medical History: Reports: Hx Migraine Renal/ Medical History: Reports: Hx Ovarian Cysts. Denies: Hx Peritoneal Dialysis GI Medical History: Reports: Hx Gastroesophageal Reflux Disease, Hx Colonoscopy Musculoskeletal Medical History: Denies Hx Arthritis Psychiatric Medical History: Reports: Hx Attention Deficit Hyperactivity Disorder Past Surgical History: Reports: Hx Section - x3, Hx Cholecystectomy, Hx Tubal Ligation. Denies: Hx Hysterectomy - Immunizations Immunizations up to date: Yes Hx Diphtheria, Pertussis, Tetanus Vaccination: Yes Review of Systems - Review of Systems Constitutional: denies: Fever EENT: No symptoms reported Cardiovascular: See HPI Respiratory: denies: Short of breath Gastrointestinal: No symptoms reported Genitourinary: No symptoms reported Female Genitourinary: No symptoms reported Musculoskeletal: See HPI Skin: No symptoms reported Hematologic/Lymphatic: No symptoms reported Neurological/Psychological: No symptoms reported Physical Exam - Vital signs Vitals: Temp Pulse Resp BP Pulse Ox 98.7 F 106 H 20 153/97 H 100 09/09/20 20:40 09/09/20 20:40 09/09/20 20:40 09/09/20 20:40 09/09/20 20:40 - General General appearance: Appears well, Alert In distress: None Notes: Texting on phone - HEENT Head: Normocephalic, Atraumatic Extraocular movements intact: Yes Pupils: PERRL - Respiratory Chest status: Tender - Left lateral and inferior chest wall Breath sounds: Normal - Cardiovascular Rhythm: Regular Heart sounds: Normal auscultation - Abdominal Inspection: Obese Tenderness: Nontender - Extremities General upper extremity: Normal ROM General lower extremity: Normal ROM Notes: Mild tenderness to the left pectoralis area - Neurological Neuro grossly intact: Yes Cognition: Normal Orientation: AAOx4 - Psychological Associated symptoms: Normal affect - Skin Skin Temperature: Warm Course - Re-evaluation Re-evalutation: 24-year-old female here with left chest wall pain ongoing for several days, she does have tenderness to this area on exam. Lungs are clear, heart RRR. Her EKG is nonischemic. Chest x-ray is without consolidation. She has a full laboratory evaluation ordered from triage which is currently in process. Discussed with patient that her pain is likely musculoskeletal in origin given the tenderness that she has. Would not favor cardiac etiology at this time. Possible pleuritic component as well. Will treat symptomatically with lidocaine patch, ibuprofen and Flexeril. 09/09/20 22:54 No leukocytosis or left shift, no acute anemia. Electrolytes within normal limits. No elevation of T bili or LFTs. Troponin negative. Urine not suggestive of UTI. Patient is appropriate for discharge at this time. Return precautions given, stable time of discharge. - Vital Signs Vital signs: Temp Pulse Resp BP Pulse Ox 98.7 F 106 H 20 153/97 H 100 09/09/20 20:40 09/09/20 20:40 09/09/20 20:40 09/09/20 20:40 09/09/20 20:40 - Laboratory Result Diagrams: 09/09/20 21:15 09/09/20 21:15 Laboratory results interpreted by me: 09/09/20 09/09/20 21:15 21:15 Sodium 136.5 L Urine Blood SMALL H Ur Leukocyte Esterase TRACE H - Diagnostic Test Radiology reviewed: Image reviewed, Reports reviewed - EKG Interpretation by Me Additional EKG results interpreted by me: EKG is interpreted by me. Mild sinus tachycardia, rate 104. Narrow QRS, QTC within normal limits. No ST segment elevation or depression. Discharge - Discharge Clinical Impression: Chest wall pain Disposition: HOME, SELF-CARE Additional Instructions: You may continue use of ibuprofen, Flexeril and lidocaine patches which are available [id number]. Please follow-up with your primary care doctor. Return to the emergency department for any concerning worsening symptoms. Prescriptions: Cyclobenzaprine HCl [Flexeril 10 mg Tablet] 10 mg PO TIDP PRN #15 tab PRN Reason: Ibuprofen [Ibu] 800 mg PO TID PRN #60 tablet PRN Reason: Referrals: ILEANA URIOSTEGUI PA-C [Primary Care Provider] - Follow up as needed
[2020-09-09 22:05] LABS: ALBUMIN 4.5 g/dL (3.5-5.0); ALKALINE PHOSPHATASE 80 U/L (38-126); ANION GAP 8 (5-19); ASPARTATE AMINO TRANSFERASE 19 U/L (14-36); BILIRUBIN,TOTAL 0.6 mg/dL (0.2-1.3); BLOOD UREA NITROGEN 11 mg/dL (7-20); CALCIUM 9.5 mg/dL (8.4-10.2); CARBON DIOXIDE 27 mmol/L (22-30); CHLORIDE 102 mmol/L (98-107); GLUCOSE 95 mg/dL (75-110); POTASSIUM 3.7 mmol/L (3.6-5.0); TOTAL PROTEIN 7.5 g/dL (6.3-8.2)
[2020-09-09] MEDS ORDERED: CYCLOBENZAPRINE HCL 10 MG TABLET PO ONE (22:16)
[2020-09-09] MEDS ORDERED: IBUPROFEN 800 MG TABLET PO ONE (22:16)
[2020-09-09] MEDS ORDERED: LIDOCAINE 5% (700 MG) TRANSDERMAL ADH..PATCH TP ONE (22:16)
[2020-09-09 23:06] VITALS: BP 129/81
--- NOTE | 2020-09-10 09:11 | EKG REPORT ---
SEVERITY:- OTHERWISE NORMAL ECG - SINUS TACHYCARDIA : Confirmed by: Gera Solares MD 10-Sep-2020 09:10:32
== END 2020-09-09 23:04 | disposition home or self-care (01) ==
LOC: ER 20:33
DX: R07.89 Other chest pain (principal); M25.519 Pain in unspecified shoulder; R05 Cough; R00.0 Tachycardia, unspecified
CPT/HCPCS: 36415; 71046; 80053; 81001; 84484; 85025; 93005; 93010; 99285